=== PATIENT | female | born 1975 | race Caucasian/White ===

== ENCOUNTER → 2016-10-05 | Outpatient (CLI) | payer BC ==
[2016-10-05 09:50] LABS: MEAN CORPUSCULAR HEMOGLOBIN 29.3 pg (27.0-33.0); MEAN CORPUSCULAR HGB CONC 33.3 g/dl (32.0-36.5); MEAN CORPUSCULAR VOLUME 88.3 fl (80.0-96.0); RED CELL DISTRIBUTION WIDTH 13.1 % (11.5-14.5); WHITE BLOOD COUNT 8.8 K/mm3 (4.0-10.0)
[2016-10-05 09:56] LABS: CONTROL LINE HCG INT CTR LINE PRESENT
[2016-10-05 10:20] LABS: ALBUMIN 3.8 GM/DL (3.2-5.2); ALKALINE PHOSPHATASE 93 U/L (45-117); ALT/SGPT 33 U/L (12-78); ANION GAP 7 MEQ/L (8-16); AST/SGOT 22 U/L (15-37); BILIRUBIN,TOTAL 0.2 MG/DL (0.2-1.0); BLOOD UREA NITROGEN 16 MG/DL (7-18); CALCIUM LEVEL 8.9 MG/DL (8.5-10.1); CARBON DIOXIDE LEVEL 29 MEQ/L (21-32); CHLORIDE LEVEL 103 MEQ/L (98-107); CHOLESTEROL LEVEL 239 MG/DL (<200); GLOMERULAR FILTRATION RATE > 60.0 (>60); GLUCOSE, FASTING 100 MG/DL (70-105); POTASSIUM SERUM 4.7 MEQ/L (3.5-5.1); SODIUM LEVEL 139 MEQ/L (136-145); TOTAL PROTEIN 7.6 GM/DL (6.4-8.2); TRIGLYCERIDES LEVEL 92 MG/DL (<150)
== END ==
LOC: M WUC 08:02
PROVIDERS: ATTEND Physician Assistant
DX: I10 Essential (primary) hypertension (principal); E28.2 Polycystic ovarian syndrome; E03.9 Hypothyroidism, unspecified

== ENCOUNTER 2016-10-17 10:11 | Emergency (ER) | payer BC ==
[~2016-10-17] VITALS: Ht 170.2 cm; Wt 90.8 kg
[2016-10-17 11:18] LABS: BASO # 0.1 K/mm3 (0.0-0.2); BASO % 0.6 % (0.0-1.0); EOS # 0.2 K/mm3 (0.0-0.50); EOS % 2.1 % (0.0-3.0); LARGE UNSTAINED CELL # 0.2 K/mm3 (0.0-0.4); LARGE UNSTAINED CELL % 1.8 % (0.0-4.0); LYMPH # 2.6 K/mm3 (1.5-4.5); LYMPH % 27.9 % (24.0-44.0); MEAN CORPUSCULAR HEMOGLOBIN 28.7 pg (27.0-33.0); MEAN CORPUSCULAR HGB CONC 33.3 g/dl (32.0-36.5); MEAN CORPUSCULAR VOLUME 86.2 fl (80.0-96.0); MONO # 0.3 K/mm3 (0.0-0.8); MONO % 3.6 % (0.0-5.0); NEUTROPHILS # 6.1 K/mm3 (1.8-7.7); PLATELET COUNT, AUTOMATED 397 k/mm3 (150-450); RED CELL DISTRIBUTION WIDTH 12.5 % (11.5-14.5); WHITE BLOOD COUNT 9.5 K/mm3 (4.0-10.0)
[2016-10-17 11:40] LABS: ANION GAP 10 MEQ/L (8-16); BLOOD UREA NITROGEN 13 MG/DL (7-18); CALCIUM LEVEL 8.9 MG/DL (8.5-10.1); CARBON DIOXIDE LEVEL 26 MEQ/L (21-32); CHLORIDE LEVEL 104 MEQ/L (98-107); CREATININE FOR GFR 0.74 MG/DL (0.55-1.02); GLOMERULAR FILTRATION RATE > 60.0 (>60); GLUCOSE, FASTING 109 MG/DL (70-105); PHOSPHORUS LEVEL 2.3 MG/DL (2.5-4.9); POTASSIUM SERUM 3.8 MEQ/L (3.5-5.1); SODIUM LEVEL 140 MEQ/L (136-145)
--- NOTE | 2016-10-17 11:49 | REP ---
Chest two views HISTORY: Chest pain Comparison: 08/12/2004 The lungs are clear. The heart is normal in size. The pulmonary vasculature is normal in appearance. The bony structure is intact. IMPRESSION: No acute disease. Signed by Lg Angel MD 10/17/2016 11:41 A
[2016-10-17] MEDS ORDERED: ACETAMINOPHEN 325 MG TAB As Ordered ONE (12:48)
[2016-10-17] MEDS ORDERED: NEUTRA-PHOS 1.25 GM PACKET PO ONE (14:00)
--- NOTE | 2016-10-17 14:48 | EDDOCDS ---
Nurse's Notes [facility] Name: Lillie Collins Age: 40 yrs Sex: Female : 1975 Arrival Date: 10/17/2016 Time: 10:11 Bed 12 Private MD: Michael Jacboson R. Diagnosis: Palpitations Presentation: 10/17 10:16 Red Flag criteria, patient assessed and taken directly to a bed. [facility] 10:17 Presenting complaint: Patient states: "My heart has been racing since yesterday, like jc4 beating fast. It feels like someone keeps plugging my ears and my teeth really hurt, it's weird". Adult Sepsis Screening: The patient does not have new or worsening altered mentation. Patient's respiratory rate is less than 22. Systolic blood pressure is greater than 100. Patient has a qSOFA score of 0- Negative Sepsis Screen. Suicide/Homicide risk assessment- the patient denies having any suicidal and/or homicidal ideations and does not present with any other emotional, behavioral or mental health complaints. Status: Patient is not a social services director or dependent. Transition of care: patient was not received from another setting of care. 10:17 Acuity: HUMBERTO Level 3 jc4 10:17 Method Of Arrival: Walkin/Carried/Asstd jc4 Triage Assessment: 10:21 General: Appears in no apparent distress. Pain: Pain currently is 0 out of 10 on a pain jc4 scale. The patient is triaged at the bedside. See Assessment in Nurses Notes section of ED record. 14:44 HIV screening NA for this visit Offered previously. 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 levothyroxine 88 mcg oral cap 1 cap once daily (Last dose: 10/17/2016 05:30) 2. metformin 1,000 mg Oral tr24 2 tabs once daily (Last dose: 10/17/2016 05:30) 3. TriNessa (28) 0.18/0.215/0.25 mg-35 mcg (28) oral tab 1 tab once daily (Last dose: 10/17/2016 05:30) 4. omeprazole 20 mg Oral cpDR 1 cap once daily (Last dose: 10/17/2016 05:30) 5. amlodipine 5 mg Oral tab 1 tab once daily (Last dose: 10/17/2016 05:30) - PMHx: Hypothyroidism; PCOS; Hypertension; GERD; - PSHx: Left Fallopian Tube Removed; C-6, C-7 Fusion; - Social history: Smoking status: Patient states was never smoker of tobacco. No barriers to communication noted, The patient speaks fluent Lao. - Family history: Not pertinent. - : The pt / caregiver states he / she is not on anticoagulants. Home medication list is obtained from the patient, Home medication list is obtained from Medications reviewed by [facility] External Medication History and confirmed with patient. - Exposure Risk Screening:: None identified. Screenin:26 Screening information is obtained from the patient. Fall risk: No risks identified. jc4 Assistance ADL's: requires no assistance with activities of daily living. Abuse/DV Screen: The patient / caregiver reports he/she is: not in a situation that causes fear, pain or injury. Nutritional screening: No deficits noted. Advance Directives: Currently, there is no health care proxy. There is no active DNR order. There is no living will. There is no Power of Trial Attorney. home support is adequate. Assessment: 10:30 General: Appears in no apparent distress, Behavior is appropriate for age, cooperative. ja5 Pain: Denies pain. Neurological: Level of Consciousness is awake, alert, Oriented to person, place, time, Snack Steward are. Cardiovascular: Capillary refill < 3 seconds Heart tones S1 S2 present Rhythm is sinus rhythm No ectopy. Respiratory: Airway is patent Respiratory effort is even, unlabored, Breath sounds are clear bilaterally. Derm: Skin is pink, warm & dry. 11:30 General: Patient resting in stretcher, respirations even and unlabored, color is pink, ja5 SR on cardiac cath tech. Patient states that she has no needs at this time. . 12:29 General: Patient on stretcher, laying down with visitor at bedside. Patient denies pain ja5 or palpitations at this time. SR with no ectopy on cardiac cath tech, respirations are even and unlabored, color is pink. Bed in low position, call juarez in reach. . 13:39 General: Patient resting in stretcher, laying down, awake and alert, respirations are ja5 even and unlabored, color is pink. Patient has a headache and was given Tylenol for pain 6/10. Patient denies any palpitations at this time. Bed in low position, call juarez in reach.. 14:45 General: Appears in no apparent distress, Behavior is appropriate for age, cooperative. ja5 Pain: Location: forehead Pain currently is 6 out of 10 on a pain scale. Neurological: Level of Consciousness is awake, alert, Oriented to person, place, time. Cardiovascular: Capillary refill < 3 seconds. Respiratory: Airway is patent Respiratory effort is even, unlabored, Respiratory pattern is regular, symmetrical. Derm: Skin is pink, warm & dry. Vital Signs: 10:14 BP 137 / 91; Pulse 92; Resp 18; Temp 97.6(O); Pulse Ox 100% on R/A; Weight 90.72 kg; nb2 Height 5 ft. 7 in. (170.18 cm) (R); Pain 0/10; 11:14 Pulse 76 MON; Pulse Ox 98% ; ja5 11:15 BP 124 / 77 (auto/); ja5 11:28 BP 129 / 73 (auto/); ja5 11:28 Pulse 80 MON; Pulse Ox 98% ; ja5 11:43 BP 133 / 82 (auto/); ja5 11:43 Pulse 80 MON; Pulse Ox 98% ; ja5 11:57 Pulse 82 MON; Pulse Ox 97% ; ja5 11:58 BP 141 / 83 (auto/); ja5 12:12 Pulse 82 MON; Pulse Ox 98% ; ja5 12:13 BP 127 / 79 (auto/); ja5 12:26 BP 128 / 74 Supine; Pulse 74; ja5 12:26 BP 140 / 81 Sitting; Pulse 82; ja5 12:26 BP 142 / 86 Standing; Pulse 85; ja5 12:28 BP 128 / 74 (auto/); ja5 12:28 Pulse 80 MON; Pulse Ox 97% ; ja5 12:43 BP 129 / 74 (auto/); ja5 12:43 Pulse 78 MON; Pulse Ox 97% ; ja5 12:58 BP 145 / 84 (auto/); ja5 12:58 Pulse 78 MON; Pulse Ox 95% ; ja5 13:13 BP 130 / 79 (auto/); ja5 13:14 Pulse 80 MON; Pulse Ox 98% ; ja5 13:28 BP 135 / 84 (auto/); ja5 13:29 Pulse 78 MON; Pulse Ox 98% ; ja5 13:46 BP 129 / 78 (auto/); ja5 13:47 Pulse 78 MON; Pulse Ox 98% ; ja5 14:12 Pulse 82 MON; Pulse Ox 96% ; ja5 14:13 BP 116 / 72 (auto/); ja5 14:36 BP 133 / 80; Pulse 75; Resp 16; Temp 97.9(O); Pulse Ox 97% on R/A; Pain 6/10; ja5 10:14 Body Mass Index 31.32 (90.72 kg, 170.18 cm) 2 Vitals: 10:14 Log In Time: October 17, 2016 at 10:10. 2 ED Course: 10:13 Patient visited by Rina Randolph. nb2 10:13 Michael Jacobson is Private Physician. nb2 10:13 Patient moved to Waiting nb2 10:14 Patient visited by Rina Randolph. nb2 10:15 Patient moved to Pre RCE nb2 10:17 Marlen Sheets,RN is Primary Nurse. [facility] 10:[address] [facility] 10:19 Triage Initiated jc4 10:25 The patient / caregiver is instructed regarding the plan of care and ED course. jc4 10:25 medical technologist hematology on. Pulse ox on. NIBP on. jc4 10:28 EKG done per protocol. Performed by ED Staff. Shown to Jonny Keita MD. jc4 10:29 EKG done. (by ED staff). Reviewed by Jonny Keita MD. rn1 11:08 Miguel A Urbina DO is [facility]. gk1 11:08 Jonny Keita MD is Attending Physician. gk1 11:13 Missed attempts: 20 gauge X 1 in left antecubital area, Bleeding controlled, band aid jc4 applied, catheter tip intact. 11:15 Patient visited by Mari Rain RN. jc4 11:16 Inserted saline lock: 20 gauge in right forearm The patient tolerated the procedure jc4 well. 12:07 Chest, 2 View (pa\\E\\lat) Returned. EDMS 12:08 Patient visited by Jonny Keita MD. br1 12:17 Mari Rain, SEB is Primary Nurse. jc4 12:45 Patient visited by Marlen Sheets RN. ja5 12:45 Patient visited by Marlen Sheets RN. ja5 13:25 [facility] Payment Agreement was scanned into [employer] and attached to record. lg 13:39 Patient visited by Marlen Sheets RN. ja5 13:43 Michael Jacobson is Referral Physician. gk1 13:43 Colleen Atkins is Referral Physician. gk1 14:43 No procedures done that require assistance. ja5 Administered Medications: 12:50 Drug: Acetaminophen 650 mg [acetaminophen 325 mg tablet (2 tabs)] Route: PO; ja5 14:33 Drug: Potassium & Sodium Phosphates 1 packets [potassium, sodium phosphates 280 mg-160 ja5 mg-250 mg oral powder packet (1 powder in packet)] Route: PO; Order Results: Lab Order: Basic Metabolic Profile; SPEC'M 10/17/16 11:07 Test: GLUCOSE, FASTING; Value: 109; Range: 70-105; Abnormal: Above high normal; Units: MG/DL; Status: F Test: BLOOD UREA NITROGEN; Value: 13; Range: 7-18; Units: MG/DL; Status: F Test: CREATININE FOR GFR; Value: 0.74; Range: 0.55-1.02; Units: MG/DL; Status: F Test: GLOMERULAR FILTRATION RATE; Value: > 60.0; Range: >60; Status: F Test: SODIUM LEVEL; Value: 140; Range: 136-145; Units: MEQ/L; Status: F Test: POTASSIUM SERUM; Value: 3.8; Range: 3.5-5.1; Units: MEQ/L; Status: F Test: CHLORIDE LEVEL; Value: 104; Range: 98-107; Units: MEQ/L; Status: F Test: CARBON DIOXIDE LEVEL; Value: 26; Range: 21-32; Units: MEQ/L; Status: F Test: ANION GAP; Value: 10; Range: 8-16; Units: MEQ/L; Status: F Test: CALCIUM LEVEL; Value: 8.9; Range: 8.5-10.1; Units: MG/DL; Status: F Test Note: ; Units are mL/min/1.73 m2 Chronic Kidney Disease Staging per NKF: Stage I & II GFR >=60 Normal to Mildly Decreased Stage III GFR 30-59 Moderately Decreased Stage IV GFR 15-29 Severely Decreased Stage V GFR <15 Very Little GFR Left ESRD GFR <15 [facility] Lab Order: CBC with Diff; SPEC'M 10/17/16 11:07 Test: WHITE BLOOD COUNT; Value: 9.5; Range: 4.0-10.0; Units: K/mm3; Status: F Test: RED BLOOD COUNT; Value: 4.53; Range: 4.00-5.40; Units: M/mm3; Status: F Test: HEMOGLOBIN; Value: 13.0; Range: 12.0-16.0; Units: g/dl; Status: F Test: HEMATOCRIT; Value: 39.1; Range: 36.0-47.0; Units: %; Status: F Test: MEAN CORPUSCULAR VOLUME; Value: 86.2; Range: 80.0-96.0; Units: fl; Status: F Test: MEAN CORPUSCULAR HEMOGLOBIN; Value: 28.7; Range: 27.0-33.0; Units: pg; Status: F Test: MEAN CORPUSCULAR HGB CONC; Value: 33.3; Range: 32.0-36.5; Units: g/dl; Status: F Test: RED CELL DISTRIBUTION WIDTH; Value: 12.5; Range: 11.5-14.5; Units: %; Status: F Test: PLATELET COUNT, AUTOMATED; Value: 397; Range: 150-450; Units: k/mm3; Status: F Test: NEUTROPHILS %; Value: 64.0; Range: 36.0-66.0; Units: %; Status: F Test: LYMPH %; Value: 27.9; Range: 24.0-44.0; Units: %; Status: F Test: MONO %; Value: 3.6; Range: 0.0-5.0; Units: %; Status: F Test: EOS %; Value: 2.1; Range: 0.0-3.0; Units: %; Status: F Test: BASO %; Value: 0.6; Range: 0.0-1.0; Units: %; Status: F Test: LARGE UNSTAINED CELL %; Value: 1.8; Range: 0.0-4.0; Units: %; Status: F Test: NEUTROPHILS #; Value: 6.1; Range: 1.8-7.7; Units: K/mm3; Status: F Test: LYMPH #; Value: 2.6; Range: 1.5-4.5; Units: K/mm3; Status: F Test: MONO #; Value: 0.3; Range: 0.0-0.8; Units: K/mm3; Status: F Test: EOS #; Value: 0.2; Range: 0.0-0.50; Units: K/mm3; Status: F Test: BASO #; Value: 0.1; Range: 0.0-0.2; Units: K/mm3; Status: F Test: LARGE UNSTAINED CELL #; Value: 0.2; Range: 0.0-0.4; Units: K/mm3; Status: F Lab Order: Cardiac Injury Profile; [facility] 10/17/16 11:07 Test: CPK CREATINE PHOSPHOKINASE; Value: 62; Range: 26-192; Units: U/L; Status: F Test: CK-MB VALUE MASS; Value: 1.0; Range: 0.0-3.6; Units: NG/ML; Status: F Test: MB/CK RELATIVE INDEX; Value: 1.61; Range: < OR =4; Status: F Test Note: ; DIAGNOSIS CRITERIA MMB ng/ml Relative Index (RI) NON-AMI < or = 5 N/A PADRON ZONE > 5 < or = 4 AMI > 5 > 4 Lab Order: Troponin; [facility] 10/17/16 11:07 Test: TROPONIN I; Value: < 0.02; Range: < 0.10; Units: NG/ML; Status: F Test Note: ; Troponin I Reference Interval for [employer] LOCI: 99th Percentile= 0.00-0.045 ng/ml Risk Stratification: <= 0.10 ng/ml Decreased Risk for Adverse Clinical Events. 0.10-1.50 ng/ml Increased Risk for Adverse Clinical Events. Evaluation of additional criterion and/or repeat testing in 2-6 hours is suggested to rule out myocardial damage. >= 1.50 ng/ml Indicative of Myocardial Injury. Lab Order: TSH with Free T4; [facility] 10/17/16 11:07 Test: THYROID STIMULATING HORMONE; Value: 1.790; Range: 0.358-3.740; Units: uIU/ML; Status: F Test: FREE T4; Value: 1.20; Range: 0.76-1.46; Units: NG/DL; Status: F Lab Order: Magnesium Level; [facility] 10/17/16 11:07 Test: MAGNESIUM LEVEL; Value: 2.0; Range: 1.8-2.4; Units: MG/DL; Status: F Lab Order: Phosphorous Level; [facility] 10/17/16 11:07 Test: PHOSPHORUS LEVEL; Value: 2.3; Range: 2.5-4.9; Abnormal: Below low normal; Units: MG/DL; Status: F Lab Order: D-Dimer Quant; SPE[facility] 10/17/16 11:50 Test: D-DIMER QUANT; Value: < 270.0; Range: <500; Units: ng/ml; Status: F Radiology Order: Chest, 2 View (pa\\E\\lat) Test: Chest, 2 View (pa\\E\\lat) REASON FOR EXAMINATION: Chest Pain; Chest two views; ; HISTORY: Chest pain; ; Comparison: 08/12/2004; ; The lungs are clear. The heart is normal in size. The pulmonary vasculature is; normal in appearance. The bony structure is intact.; ; IMPRESSION: No acute disease.; ; ; Signed by; Lg Angel MD 10/17/2016 11:41 A; Outcome: 13:43 Discharge ordered by Provider. gk1 14:43 Discharge Assessment: Patient awake and alert. Oriented to person, place and time. ja5 patient administered narcotics - no. The following High Risk Discharge criteria are identified: None. Discharged to home ambulatory, with family. Condition: stable. Discharge instructions given to patient, Instructed on discharge instructions, follow up and referral plans. Demonstrated understanding of instructions, Pt was receptive of discharge instructions/ teaching. No special radiology studies were completed. Property :Personal belongings accompany Pt. 14:47 Patient left the ED. ja5 Signatures: Dispatcher [employer] EDAimee Byrson, SEB RN Lorena Izaguirre, Jonny Mckenna lg, MD MD br1 Mari Rain RN RN jc4 Newman, Robert rn1 Rina Randolph Gurpreet, DO DO gk1 Marlen Sheets,RN RN ja5 Corrections: (The following items were deleted from the chart) General: Appears in no apparent distress, mary grace jaEliza Pain: Denies pain. debi5 ja5 MTDD
--- NOTE | 2016-10-17 14:48 | EDDOCDS ---
Physician Documentation [facility] Name: Lillie Collins Age: 40 yrs Sex: Female : 1975 Arrival Date: 10/17/2016 Time: 10:11 Bed 12 Private MD: Michael Jacobson R. Disposition: 10/17/16 13:43 Discharged to Home/Self Care. Impression: Palpitations. - Condition is Stable. - Discharge Instructions: Palpitations, Palpitations, [id number]. - Medication Reconciliation, Local Pharmacy Hours form. - Follow up: Michael Jacobson; When: 1 week; Reason: Recheck today's complaints, Continuance of care. Follow up: Colleen Atkins; When: Call to arrange an appointment; Reason: Recheck today's complaints, To establish care. - Problem is new. - Symptoms have improved. Historical: - Allergies: no known allergies; - Home Meds: 1. levothyroxine 88 mcg oral cap 1 cap once daily (Last dose: 10/17/2016 05:30) 2. metformin 1,000 mg Oral tr24 2 tabs once daily (Last dose: 10/17/2016 05:30) 3. TriNessa (28) 0.18/0.215/0.25 mg-35 mcg (28) oral tab 1 tab once daily (Last dose: 10/17/2016 05:30) 4. omeprazole 20 mg Oral cpDR 1 cap once daily (Last dose: 10/17/2016 05:30) 5. amlodipine 5 mg Oral tab 1 tab once daily (Last dose: 10/17/2016 05:30) - PMHx: Hypothyroidism; PCOS; Hypertension; GERD; - PSHx: Left Fallopian Tube Removed; C-6, C-7 Fusion; - Social history: Smoking status: Patient states was never smoker of tobacco. No barriers to communication noted, The patient speaks fluent Malaysian. - Family history: Not pertinent. - : The pt / caregiver states he / she is not on anticoagulants. Home medication list is obtained from the patient, Home medication list is obtained from [facility] External Medication History and confirmed with patient. - Exposure Risk Screening:: None identified. 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 7 in. (170.18 cm) (R); Pain 0/10; 11:14 Pulse 76 MON; Pulse Ox 98% ; ja5 11:15 BP 124 / 77 (auto/); ja5 11:28 BP 129 / 73 (auto/); ja5 11:28 Pulse 80 MON; Pulse Ox 98% ; ja5 11:43 BP 133 / 82 (auto/); ja5 11:43 Pulse 80 MON; Pulse Ox 98% ; ja5 11:57 Pulse 82 MON; Pulse Ox 97% ; ja5 11:58 BP 141 / 83 (auto/); ja5 12:12 Pulse 82 MON; Pulse Ox 98% ; ja5 12:13 BP 127 / 79 (auto/); ja5 12:26 BP 128 / 74 Supine; Pulse 74; ja5 12:26 BP 140 / 81 Sitting; Pulse 82; ja5 12:26 BP 142 / 86 Standing; Pulse 85; ja5 12:28 BP 128 / 74 (auto/); ja5 12:28 Pulse 80 MON; Pulse Ox 97% ; ja5 12:43 BP 129 / 74 (auto/); ja5 12:43 Pulse 78 MON; Pulse Ox 97% ; ja5 12:58 BP 145 / 84 (auto/); ja5 12:58 Pulse 78 MON; Pulse Ox 95% ; ja5 13:13 BP 130 / 79 (auto/); ja5 13:14 Pulse 80 MON; Pulse Ox 98% ; ja5 13:28 BP 135 / 84 (auto/); ja5 13:29 Pulse 78 MON; Pulse Ox 98% ; ja5 13:46 BP 129 / 78 (auto/); ja5 13:47 Pulse 78 MON; Pulse Ox 98% ; ja5 14:12 Pulse 82 MON; Pulse Ox 96% ; ja5 14:13 BP 116 / 72 (auto/); ja5 14:36 BP 133 / 80; Pulse 75; Resp 16; Temp 97.9(O); Pulse Ox 97% on R/A; Pain 6/10; ja5 10:14 Body Mass Index 31.32 (90.72 kg, 170.18 cm) nb2 MDM: 10:18 ECG WITH READING ER PHYS+CARDIAG ordered. EDMS 10:18 ECG WITH READING ER PHYS+CARDIAG ordered. EDMS 10:28 Automotive Parts Coordinator/Pulse Ox/q 30 min VS ordered. br1 10:28 IV Saline Lock ordered. br1 10:28 Rhythm Strip to chart ordered. br1 10:28 Undress patient appropriately for examination ordered. br1 10:29 Basic Metabolic Profile Ordered. EDMS 10:29 CBC with Diff Ordered. EDMS 10:29 Cardiac Injury Profile Ordered. EDMS 10:29 Troponin Ordered. EDMS 10:29 TSH with Free T4 Ordered. EDMS 10:29 Magnesium Level Ordered. EDMS 10:29 Phosphorous Level Ordered. EDMS 10:29 Chest, 2 View (pa\E\lat) Ordered. EDMS 11:37 Orthostatic VS ordered. gk1 11:59 D-Dimer Quant Ordered. EDMS 12:46 Financial registration complete. lg 12:46 Acetaminophen Tablet 650 mg PO once ordered. br1 13:25 [facility] Payment Agreement was scanned into [employer] and attached to record. lg 13:29 Basic Metabolic Profile Reviewed. gk1 13:29 Phosphorous Level Reviewed. gk1 13:29 CBC with Diff Reviewed. gk1 13:29 Cardiac Injury Profile Reviewed. gk1 13:29 Troponin Reviewed. gk1 13:29 TSH with Free T4 Reviewed. gk1 13:29 Magnesium Level Reviewed. gk1 13:29 D-Dimer Quant Reviewed. gk1 13:29 Chest, 2 View (pa\E\lat) Reviewed. gk1 13:34 Potassium & Sodium Phosphates Packet 280 mg-160 mg-250 mg 1 packets PO once; mix packet br1 with 75ml water or juice, stir well and administer promptly ordered. 13:47 ED course: Seen with resident. Complains of palpitations, feels heart beating br1 irregularly, now improved. Labs, imaging unrevealing. EKG and cardiac telemetry show only normal sinus rhythm. Dr. Atkins consulted, will see patient as outpatient. Patient agrees, will call for appointment.. Administered Medications: 12:50 Drug: Acetaminophen 650 mg [acetaminophen 325 mg tablet (2 tabs)] Route: PO; ja5 14:33 Drug: Potassium & Sodium Phosphates 1 packets [potassium, sodium phosphates 280 mg-160 ja5 mg-250 mg oral powder packet (1 powder in packet)] Route: PO; Signatures: Dispatcher [employer] EDLorena Gibson, Reg Reg lg Jonny Keita MD MD br1 Mari Rain, RN RN jc4 Miguel A Urbina, DO gk1 Marlen Sheets,RN RN ja5 The chart was reviewed and I authenticate all verbal orders and agree with the evaluation and treatment provided.Attachments: 13:25 [facility] Payment Agreement lg MTDD
--- NOTE | 2016-10-19 09:39 | ECGEPIP ---
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 RBBB NONSPECIFIC T WAVE ABNORMALITY NO PRIORS Electronically Signed On 10-19-2016 9:39:08 EST by Omi Dozier
--- NOTE | 2016-10-19 15:47 | EDDOCDS ---
Physician Documentation [facility] Name: Lillie Collins Age: 40 yrs Sex: Female : 1975 Arrival Date: 10/17/2016 Time: 10:11 Bed 12 Private MD: Michael Jacobson R. Disposition: 10/17/16 13:43 Discharged to Home/Self Care. Impression: Palpitations. - Condition is Stable. - Discharge Instructions: Palpitations, Palpitations, [id number]. - Medication Reconciliation, Local Pharmacy Hours form. - Follow up: Michael Jacobson; When: 1 week; Reason: Recheck today's complaints, Continuance of care. Follow up: Colleen Atkins; When: Call to arrange an appointment; Reason: Recheck today's complaints, To establish care. - Problem is new. - Symptoms have improved. Historical: - Allergies: no known allergies; - Home Meds: 1. levothyroxine 88 mcg oral cap 1 cap once daily (Last dose: 10/17/2016 05:30) 2. metformin 1,000 mg Oral tr24 2 tabs once daily (Last dose: 10/17/2016 05:30) 3. TriNessa (28) 0.18/0.215/0.25 mg-35 mcg (28) oral tab 1 tab once daily (Last dose: 10/17/2016 05:30) 4. omeprazole 20 mg Oral cpDR 1 cap once daily (Last dose: 10/17/2016 05:30) 5. amlodipine 5 mg Oral tab 1 tab once daily (Last dose: 10/17/2016 05:30) - PMHx: Hypothyroidism; PCOS; Hypertension; GERD; - PSHx: Left Fallopian Tube Removed; C-6, C-7 Fusion; - Social history: Smoking status: Patient states was never smoker of tobacco. No barriers to communication noted, The patient speaks fluent Rwandan. - Family history: Not pertinent. - : The pt / caregiver states he / she is not on anticoagulants. Home medication list is obtained from the patient, Home medication list is obtained from [facility] Medication History and confirmed with patient. - Exposure Risk Screening:: None identified. 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 7 in. (170.18 cm) (R); Pain 0/10; 11:14 Pulse 76 MON; Pulse Ox 98% ; ja5 11:15 BP 124 / 77 (auto/); ja5 11:28 BP 129 / 73 (auto/); ja5 11:28 Pulse 80 MON; Pulse Ox 98% ; ja5 11:43 BP 133 / 82 (auto/); ja5 11:43 Pulse 80 MON; Pulse Ox 98% ; ja5 11:57 Pulse 82 MON; Pulse Ox 97% ; ja5 11:58 BP 141 / 83 (auto/); ja5 12:12 Pulse 82 MON; Pulse Ox 98% ; ja5 12:13 BP 127 / 79 (auto/); ja5 12:26 BP 128 / 74 Supine; Pulse 74; ja5 12:26 BP 140 / 81 Sitting; Pulse 82; ja5 12:26 BP 142 / 86 Standing; Pulse 85; ja5 12:28 BP 128 / 74 (auto/); ja5 12:28 Pulse 80 MON; Pulse Ox 97% ; ja5 12:43 BP 129 / 74 (auto/); ja5 12:43 Pulse 78 MON; Pulse Ox 97% ; ja5 12:58 BP 145 / 84 (auto/); ja5 12:58 Pulse 78 MON; Pulse Ox 95% ; ja5 13:13 BP 130 / 79 (auto/); ja5 13:14 Pulse 80 MON; Pulse Ox 98% ; ja5 13:28 BP 135 / 84 (auto/); ja5 13:29 Pulse 78 MON; Pulse Ox 98% ; ja5 13:46 BP 129 / 78 (auto/); ja5 13:47 Pulse 78 MON; Pulse Ox 98% ; ja5 14:12 Pulse 82 MON; Pulse Ox 96% ; ja5 14:13 BP 116 / 72 (auto/); ja5 14:36 BP 133 / 80; Pulse 75; Resp 16; Temp 97.9(O); Pulse Ox 97% on R/A; Pain 6/10; ja5 14:47 Pain 6/10; ja5 10:14 Body Mass Index 31.32 (90.72 kg, 170.18 cm) nb2 MDM: 10:18 ECG WITH READING ER PHYS+CARDIAG ordered. EDMS 10:18 ECG WITH READING ER PHYS+CARDIAG ordered. EDMS 10:28 Scow Captain/Pulse Ox/q 30 min VS ordered. br1 10:28 IV Saline Lock ordered. br1 10:28 Rhythm Strip to chart ordered. br1 10:28 Undress patient appropriately for examination ordered. br1 10:29 Basic Metabolic Profile Ordered. EDMS 10:29 CBC with Diff Ordered. EDMS 10:29 Cardiac Injury Profile Ordered. EDMS 10:29 Troponin Ordered. EDMS 10:29 TSH with Free T4 Ordered. EDMS 10:29 Magnesium Level Ordered. EDMS 10:29 Phosphorous Level Ordered. EDMS 10:29 Chest, 2 View (pa\E\lat) Ordered. EDMS 11:37 Orthostatic VS ordered. gk1 11:59 D-Dimer Quant Ordered. EDMS 12:46 Financial registration complete. lg 12:46 Acetaminophen Tablet 650 mg PO once ordered. br1 13:25 [facility] Payment Agreement was scanned into [employer] and attached to record. lg 13:29 Basic Metabolic Profile Reviewed. gk1 13:29 Phosphorous Level Reviewed. gk1 13:29 CBC with Diff Reviewed. gk1 13:29 Cardiac Injury Profile Reviewed. gk1 13:29 Troponin Reviewed. gk1 13:29 TSH with Free T4 Reviewed. gk1 13:29 Magnesium Level Reviewed. gk1 13:29 D-Dimer Quant Reviewed. gk1 13:29 Chest, 2 View (pa\E\lat) Reviewed. gk1 13:34 Potassium & Sodium Phosphates Packet 280 mg-160 mg-250 mg 1 packets PO once; mix packet br1 with 75ml water or juice, stir well and administer promptly ordered. 13:47 ED course: Seen with resident. Complains of palpitations, feels heart beating br1 irregularly, now improved. Labs, imaging unrevealing. EKG and cardiac telemetry show only normal sinus rhythm. Dr. Atkins consulted, will see patient as outpatient. Patient agrees, will call for appointment.. Administered Medications: 12:50 Drug: Acetaminophen 650 mg [acetaminophen 325 mg tablet (2 tabs)] Route: PO; ja5 14:47 Follow up: Pain 01/28 Adult ja5 14:33 Drug: Potassium & Sodium Phosphates 1 packets [potassium, sodium phosphates 280 mg-160 ja5 mg-250 mg oral powder packet (1 powder in packet)] Route: PO; Signatures: Dispatcher [employer] Lorena Ibarra, Reg Reg lg Jonny Keita MD MD br1 Mari Rain RN RN jc4 Miguel A Urbina, DO gk1 Marlen SheetsRN RN ja5 The chart was reviewed and I authenticate all verbal orders and agree with the evaluation and treatment provided.Attachments: 13:25 [facility] Payment Agreement lg Chart Complete MTDD
--- NOTE | 2016-10-19 15:47 | EDDOCDS ---
Nurse's Notes [facility] Name: Harjit Collins Age: 40 yrs Sex: Female : 1975 Arrival Date: 10/17/2016 Time: 10:11 Bed 12 Private MD: Michael Jacobson R. Diagnosis: Palpitations Presentation: 10/17 10:16 Red Flag criteria, patient assessed and taken directly to a bed. [facility] 10:17 Presenting complaint: Patient states: "My heart has been racing since yesterday, like jc4 beating fast. It feels like someone keeps plugging my ears and my teeth really hurt, it's weird". Adult Sepsis Screening: The patient does not have new or worsening altered mentation. Patient's respiratory rate is less than 22. Systolic blood pressure is greater than 100. Patient has a qSOFA score of 0- Negative Sepsis Screen. Suicide/Homicide risk assessment- the patient denies having any suicidal and/or homicidal ideations and does not present with any other emotional, behavioral or mental health complaints. Status: Patient is not a premium service representative or dependent. Transition of care: patient was not received from another setting of care. 10:17 Acuity: HUMBERTO Level 3 jc4 10:17 Method Of Arrival: Walkin/Carried/Asstd jc4 Triage Assessment: 10:21 General: Appears in no apparent distress. Pain: Pain currently is 0 out of 10 on a pain jc4 scale. The patient is triaged at the bedside. See Assessment in Nurses Notes section of ED record. 14:44 HIV screening NA for this visit Offered previously. 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 levothyroxine 88 mcg oral cap 1 cap once daily (Last dose: 10/17/2016 05:30) 2. metformin 1,000 mg Oral tr24 2 tabs once daily (Last dose: 10/17/2016 05:30) 3. TriNessa (28) 0.18/0.215/0.25 mg-35 mcg (28) oral tab 1 tab once daily (Last dose: 10/17/2016 05:30) 4. omeprazole 20 mg Oral cpDR 1 cap once daily (Last dose: 10/17/2016 05:30) 5. amlodipine 5 mg Oral tab 1 tab once daily (Last dose: 10/17/2016 05:30) - PMHx: Hypothyroidism; PCOS; Hypertension; GERD; - PSHx: Left Fallopian Tube Removed; C-6, C-7 Fusion; - Social history: Smoking status: Patient states was never smoker of tobacco. No barriers to communication noted, The patient speaks fluent Azeri. - Family history: Not pertinent. - : The pt / caregiver states he / she is not on anticoagulants. Home medication list is obtained from the patient, Home medication list is obtained from Medications reviewed by Image Searcher External Medication History and confirmed with patient. - Exposure Risk Screening:: None identified. Screenin:26 Screening information is obtained from the patient. Fall risk: No risks identified. jc4 Assistance ADL's: requires no assistance with activities of daily living. Abuse/DV Screen: The patient / caregiver reports he/she is: not in a situation that causes fear, pain or injury. Nutritional screening: No deficits noted. Advance Directives: Currently, there is no health care proxy. There is no active DNR order. There is no living will. 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 home support is adequate. Assessment: 10:30 General: Appears in no apparent distress, Behavior is appropriate for age, cooperative. ja5 Pain: Denies pain. Neurological: Level of Consciousness is awake, alert, Oriented to person, place, time, Nutrition Services Aide are. Cardiovascular: Capillary refill < 3 seconds Heart tones S1 S2 present Rhythm is sinus rhythm No ectopy. Respiratory: Airway is patent Respiratory effort is even, unlabored, Breath sounds are clear bilaterally. Derm: Skin is pink, warm & dry. 11:30 General: Patient resting in stretcher, respirations even and unlabored, color is pink, ja5 SR on cardiac cath tech. Patient states that she has no needs at this time. . 12:29 General: Patient on stretcher, laying down with visitor at bedside. Patient denies pain ja5 or palpitations at this time. SR with no ectopy on cardiac cath tech, respirations are even and unlabored, color is pink. Bed in low position, call juarez in reach. . 13:39 General: Patient resting in stretcher, laying down, awake and alert, respirations are ja5 even and unlabored, color is pink. Patient has a headache and was given Tylenol for pain 6/10. Patient denies any palpitations at this time. Bed in low position, call juarez in reach.. 14:45 General: Appears in no apparent distress, Behavior is appropriate for age, cooperative. ja5 Pain: Location: forehead Pain currently is 6 out of 10 on a pain scale. Neurological: Level of Consciousness is awake, alert, Oriented to person, place, time. Cardiovascular: Capillary refill < 3 seconds. Respiratory: Airway is patent Respiratory effort is even, unlabored, Respiratory pattern is regular, symmetrical. Derm: Skin is pink, warm & dry. Vital Signs: 10:14 BP 137 / 91; Pulse 92; Resp 18; Temp 97.6(O); Pulse Ox 100% on R/A; Weight 90.72 kg; nb2 Height 5 ft. 7 in. (170.18 cm) (R); Pain 0/10; 11:14 Pulse 76 MON; Pulse Ox 98% ; ja5 11:15 BP 124 / 77 (auto/); ja5 11:28 BP 129 / 73 (auto/); ja5 11:28 Pulse 80 MON; Pulse Ox 98% ; ja5 11:43 BP 133 / 82 (auto/); ja5 11:43 Pulse 80 MON; Pulse Ox 98% ; ja5 11:57 Pulse 82 MON; Pulse Ox 97% ; ja5 11:58 BP 141 / 83 (auto/); ja5 12:12 Pulse 82 MON; Pulse Ox 98% ; ja5 12:13 BP 127 / 79 (auto/); ja5 12:26 BP 128 / 74 Supine; Pulse 74; ja5 12:26 BP 140 / 81 Sitting; Pulse 82; ja5 12:26 BP 142 / 86 Standing; Pulse 85; ja5 12:28 BP 128 / 74 (auto/); ja5 12:28 Pulse 80 MON; Pulse Ox 97% ; ja5 12:43 BP 129 / 74 (auto/); ja5 12:43 Pulse 78 MON; Pulse Ox 97% ; ja5 12:58 BP 145 / 84 (auto/); ja5 12:58 Pulse 78 MON; Pulse Ox 95% ; ja5 13:13 BP 130 / 79 (auto/); ja5 13:14 Pulse 80 MON; Pulse Ox 98% ; ja5 13:28 BP 135 / 84 (auto/); ja5 13:29 Pulse 78 MON; Pulse Ox 98% ; ja5 13:46 BP 129 / 78 (auto/); ja5 13:47 Pulse 78 MON; Pulse Ox 98% ; ja5 14:12 Pulse 82 MON; Pulse Ox 96% ; ja5 14:13 BP 116 / 72 (auto/); ja5 14:36 BP 133 / 80; Pulse 75; Resp 16; Temp 97.9(O); Pulse Ox 97% on R/A; Pain 6/10; ja5 14:47 Pain 6/10; ja5 10:14 Body Mass Index 31.32 (90.72 kg, 170.18 cm) nb2 Vitals: 10:14 Log In Time: October 17, 2016 at 10:10. nb2 ED Course: 10:13 Patient visited by Rina Randolph. nb2 10:13 Michael Jacobson is Private Physician. nb2 10:13 Patient moved to Waiting nb2 10:14 Patient visited by Rina Randolph. nb2 10:15 Patient moved to Pre RCE nb2 10:17 Marlen Sheets,SEB is Primary Nurse. kp 10:17 Patient moved to [facility] 10:19 Triage Initiated jc4 10:25 The patient / caregiver is instructed regarding the plan of care and ED course. jc4 10:25 environmental monitoring technician on. Pulse ox on. NIBP on. jc4 10:28 EKG done per protocol. Performed by ED Staff. Shown to Dee Keita MD. jc4 10:29 EKG done. (by ED staff). Reviewed by Dee Keita MD. rn1 11:08 [facility] gk1 11:08 Dee Keita MD is Attending Physician. gk1 11:13 Missed attempts: 20 gauge X 1 in left antecubital area, Bleeding controlled, band aid jc4 applied, catheter tip intact. 11:15 Patient visited by Mari Rain, SEB. jc4 11:16 Inserted saline lock: 20 gauge in right forearm The patient tolerated the procedure jc4 well. 12:07 Chest, 2 View (pa\\E\\lat) Returned. EDMS 12:08 Patient visited by Dee Keita MD. br1 12:17 Mari Rain, SEB is Primary Nurse. jc4 12:45 Patient visited by Marlen Sheets RN. ja5 12:45 Patient visited by Marlen Sheets RN. ja5 13:25 [facility] Payment Agreement was scanned into [employer] and attached to record. lg 13:39 Patient visited by Marlen Sheets RN. ja5 13:43 Michael Jacobson is Referral Physician. gk1 13:43 Colleen Atkins is Referral Physician. gk1 14:43 No procedures done that require assistance. ja5 10/19 10:05 EKG-ADULT Returned. EDMS Administered Medications: 10/17 12:50 Drug: Acetaminophen 650 mg [acetaminophen 325 mg tablet (2 tabs)] Route: PO; ja5 14:47 Follow up: Pain 01/28 Adult [facility] 14:33 Drug: Potassium & Sodium Phosphates 1 packets [potassium, sodium phosphates 280 mg-160 ja5 mg-250 mg oral powder packet (1 powder in packet)] Route: PO; Order Results: Lab Order: Basic Metabolic Profile; SPEC'M 10/17/16 11:07 Test: GLUCOSE, FASTING; Value: 109; Range: 70-105; Abnormal: Above high normal; Units: MG/DL; Status: F Test: BLOOD UREA NITROGEN; Value: 13; Range: 7-18; Units: MG/DL; Status: F Test: CREATININE FOR GFR; Value: 0.74; Range: 0.55-1.02; Units: MG/DL; Status: F Test: GLOMERULAR FILTRATION RATE; Value: > 60.0; Range: >60; Status: F Test: SODIUM LEVEL; Value: 140; Range: 136-145; Units: MEQ/L; Status: F Test: POTASSIUM SERUM; Value: 3.8; Range: 3.5-5.1; Units: MEQ/L; Status: F Test: CHLORIDE LEVEL; Value: 104; Range: 98-107; Units: MEQ/L; Status: F Test: CARBON DIOXIDE LEVEL; Value: 26; Range: 21-32; Units: MEQ/L; Status: F Test: ANION GAP; Value: 10; Range: 8-16; Units: MEQ/L; Status: F Test: CALCIUM LEVEL; Value: 8.9; Range: 8.5-10.1; Units: MG/DL; Status: F Test Note: ; Units are mL/min/1.73 m2 Chronic Kidney Disease Staging per NKF: Stage I & II GFR >=60 Normal to Mildly Decreased Stage III GFR 30-59 Moderately Decreased Stage IV GFR 15-29 Severely Decreased Stage V GFR <15 Very Little GFR Left ESRD GFR <15 on 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 Lab Order: CBC with Diff; MARYJANE 10/17/16 11:07 Test: WHITE BLOOD COUNT; Value: 9.5; Range: 4.0-10.0; Units: K/mm3; Status: F Test: RED BLOOD COUNT; Value: 4.53; Range: 4.00-5.40; Units: M/mm3; Status: F Test: HEMOGLOBIN; Value: 13.0; Range: 12.0-16.0; Units: g/dl; Status: F Test: HEMATOCRIT; Value: 39.1; Range: 36.0-47.0; Units: %; Status: F Test: MEAN CORPUSCULAR VOLUME; Value: 86.2; Range: 80.0-96.0; Units: fl; Status: F Test: MEAN CORPUSCULAR HEMOGLOBIN; Value: 28.7; Range: 27.0-33.0; Units: pg; Status: F Test: MEAN CORPUSCULAR HGB CONC; Value: 33.3; Range: 32.0-36.5; Units: g/dl; Status: F Test: RED CELL DISTRIBUTION WIDTH; Value: 12.5; Range: 11.5-14.5; Units: %; Status: F Test: PLATELET COUNT, AUTOMATED; Value: 397; Range: 150-450; Units: k/mm3; Status: F Test: NEUTROPHILS %; Value: 64.0; Range: 36.0-66.0; Units: %; Status: F Test: LYMPH %; Value: 27.9; Range: 24.0-44.0; Units: %; Status: F Test: MONO %; Value: 3.6; Range: 0.0-5.0; Units: %; Status: F Test: EOS %; Value: 2.1; Range: 0.0-3.0; Units: %; Status: F Test: BASO %; Value: 0.6; Range: 0.0-1.0; Units: %; Status: F Test: LARGE UNSTAINED CELL %; Value: 1.8; Range: 0.0-4.0; Units: %; Status: F Test: NEUTROPHILS #; Value: 6.1; Range: 1.8-7.7; Units: K/mm3; Status: F Test: LYMPH #; Value: 2.6; Range: 1.5-4.5; Units: K/mm3; Status: F Test: MONO #; Value: 0.3; Range: 0.0-0.8; Units: K/mm3; Status: F Test: EOS #; Value: 0.2; Range: 0.0-0.50; Units: K/mm3; Status: F Test: BASO #; Value: 0.1; Range: 0.0-0.2; Units: K/mm3; Status: F Test: LARGE UNSTAINED CELL #; Value: 0.2; Range: 0.0-0.4; Units: K/mm3; Status: F Lab Order: Cardiac Injury Profile; [facility]' 10/17/16 11:07 Test: CPK CREATINE PHOSPHOKINASE; Value: 62; Range: 26-192; Units: U/L; Status: F Test: CK-MB VALUE MASS; Value: 1.0; Range: 0.0-3.6; Units: NG/ML; Status: F Test: MB/CK RELATIVE INDEX; Value: 1.61; Range: < OR =4; Status: F Test Note: ; DIAGNOSIS CRITERIA MMB ng/ml Relative Index (RI) NON-AMI < or = 5 N/A PADRON ZONE > 5 < or = 4 AMI > 5 > 4 Lab Order: Troponin; SPEC' 10/17/16 11:07 Test: TROPONIN I; Value: < 0.02; Range: < 0.10; Units: NG/ML; Status: F Test Note: ; Troponin I Reference Interval for What the Trend LOCI: 99th Percentile= 0.00-0.045 ng/ml Risk Stratification: <= 0.10 ng/ml Decreased Risk for Adverse Clinical Events. 0.10-1.50 ng/ml Increased Risk for Adverse Clinical Events. Evaluation of additional criterion and/or repeat testing in 2-6 hours is suggested to rule out myocardial damage. >= 1.50 ng/ml Indicative of Myocardial Injury. Lab Order: TSH with Free T4; SPEC'M 10/17/16 11:07 Test: THYROID STIMULATING HORMONE; Value: 1.790; Range: 0.358-3.740; Units: uIU/ML; Status: F Test: FREE T4; Value: 1.20; Range: 0.76-1.46; Units: NG/DL; Status: F Lab Order: Magnesium Level; SPEC'M 10/17/16 11:07 Test: MAGNESIUM LEVEL; Value: 2.0; Range: 1.8-2.4; Units: MG/DL; Status: F Lab Order: Phosphorous Level; SPEC'10/17/16 11:07 Test: PHOSPHORUS LEVEL; Value: 2.3; Range: 2.5-4.9; Abnormal: Below low normal; Units: MG/DL; Status: F Lab Order: D-Dimer Quant; SPEC'10/17/16 11:50 Test: D-DIMER QUANT; Value: < 270.0; Range: <500; Units: ng/ml; Status: F Radiology Order: EKG-ADULT Test: EKG-ADULT REASON FOR EXAMINATION: palpitations; Stationary ECG Study; [facility] - ED; ; Test Date: 2016-10-17; Pat Name: HARJIT COLLINS Department:; Room: -; Gender: F 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 RBBB; NONSPECIFIC T WAVE ABNORMALITY; NO PRIORS; Electronically Signed On 10-19-2016 9:39:08 EST by Omi Dozier; Radiology Order: Chest, 2 View (pa\\E\\lat) Test: Chest, 2 View (pa\\E\\lat) REASON FOR EXAMINATION: Chest Pain; Chest two views; ; HISTORY: Chest pain; ; Comparison: 08/12/2004; ; The lungs are clear. The heart is normal in size. The pulmonary vasculature is; normal in appearance. The bony structure is intact.; ; IMPRESSION: No acute disease.; ; ; Signed by; Lg Angel MD 10/17/2016 11:41 A; Outcome: 13:43 Discharge ordered by Provider. 1 14:43 Discharge Assessment: Patient awake and alert. Oriented to person, place and time. ja5 patient administered narcotics - no. The following High Risk Discharge criteria are identified: None. Discharged to home ambulatory, with family. Condition: stable. Discharge instructions given to patient, Instructed on discharge instructions, follow up and referral plans. Demonstrated understanding of instructions, Pt was receptive of discharge instructions/ teaching. No special radiology studies were completed. Property :Personal belongings accompany Pt. 14:47 Patient left the ED. ja5 Signatures: Dispatcher [employer] EDMS Aimee Devi, RN RN Lorena Izaguirre, Dee Mckenna lg, MD MD br1 Mari Rain, RN RN [email or web address] Nigel Porter rn1 Rina Randolph2 Miguel A Urbina, DO DO 1 Marlen Sheets,RN RN ja5 Corrections: (The following items were deleted from the chart) 12:24 12:22 General: Appears in no apparent distress, mary grace jaEliza 12:24 12:22 Pain: Denies pain. mary grace jaEliza Chart Complete MTDD
--- NOTE | 2016-10-19 15:47 | EDDOCDS ---
Physician Documentation [facility] Name: Lillie Collins Age: 40 yrs Sex: Female : 1975 Arrival Date: 10/17/2016 Time: 10:11 Bed 12 Private MD: Michael Jacobson R. Disposition: 10/17/16 13:43 Discharged to Home/Self Care. Impression: Palpitations. - Condition is Stable. - Discharge Instructions: Palpitations, Palpitations, Syjz-[id number]. - Medication Reconciliation, Local Pharmacy Hours form. - Follow up: Michael Jacobson; When: 1 week; Reason: Recheck today's complaints, Continuance of care. Follow up: Colleen Atkins; When: Call to arrange an appointment; Reason: Recheck today's complaints, To establish care. - Problem is new. - Symptoms have improved. Historical: - Allergies: no known allergies; - Home Meds: 1. levothyroxine 88 mcg oral cap 1 cap once daily (Last dose: 10/17/2016 05:30) 2. metformin 1,000 mg Oral tr24 2 tabs once daily (Last dose: 10/17/2016 05:30) 3. TriNessa (28) 0.18/0.215/0.25 mg-35 mcg (28) oral tab 1 tab once daily (Last dose: 10/17/2016 05:30) 4. omeprazole 20 mg Oral cpDR 1 cap once daily (Last dose: 10/17/2016 05:30) 5. amlodipine 5 mg Oral tab 1 tab once daily (Last dose: 10/17/2016 05:30) - PMHx: Hypothyroidism; PCOS; Hypertension; GERD; - PSHx: Left Fallopian Tube Removed; C-6, C-7 Fusion; - Social history: Smoking status: Patient states was never smoker of tobacco. No barriers to communication noted, The patient speaks fluent Bel[place]ian. - Family history: Not pertinent. - : The pt / caregiver states he / she is not on anticoagulants. Home medication list is obtained from the patient, Home medication list is obtained from Medications [facility] by [facility] External Medication History and confirmed with patient. - Exposure Risk Screening:: None identified. 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 7 in. (170.18 cm) (R); Pain 0/10; 11:14 Pulse 76 MON; Pulse Ox 98% ; ja5 11:15 BP 124 / 77 (auto/); ja5 11:28 BP 129 / 73 (auto/); ja5 11:28 Pulse 80 MON; Pulse Ox 98% ; ja5 11:43 BP 133 / 82 (auto/); ja5 11:43 Pulse 80 MON; Pulse Ox 98% ; ja5 11:57 Pulse 82 MON; Pulse Ox 97% ; ja5 11:58 BP 141 / 83 (auto/); ja5 12:12 Pulse 82 MON; Pulse Ox 98% ; ja5 12:13 BP 127 / 79 (auto/); ja5 12:26 BP 128 / 74 Supine; Pulse 74; ja5 12:26 BP 140 / 81 Sitting; Pulse 82; ja5 12:26 BP 142 / 86 Standing; Pulse 85; ja5 12:28 BP 128 / 74 (auto/); ja5 12:28 Pulse 80 MON; Pulse Ox 97% ; ja5 12:43 BP 129 / 74 (auto/); ja5 12:43 Pulse 78 MON; Pulse Ox 97% ; ja5 12:58 BP 145 / 84 (auto/); ja5 12:58 Pulse 78 MON; Pulse Ox 95% ; ja5 13:13 BP 130 / 79 (auto/); ja5 13:14 Pulse 80 MON; Pulse Ox 98% ; ja5 13:28 BP 135 / 84 (auto/); ja5 13:29 Pulse 78 MON; Pulse Ox 98% ; ja5 13:46 BP 129 / 78 (auto/); ja5 13:47 Pulse 78 MON; Pulse Ox 98% ; ja5 14:12 Pulse 82 MON; Pulse Ox 96% ; ja5 14:13 BP 116 / 72 (auto/); ja5 14:36 BP 133 / 80; Pulse 75; Resp 16; Temp 97.9(O); Pulse Ox 97% on R/A; Pain 6/10; ja5 14:47 Pain 6/10; ja5 10:14 Body Mass Index 31.32 (90.72 kg, 170.18 cm) nb2 MDM: 10:18 ECG WITH READING ER PHYS+CARDIAG ordered. EDMS 10:18 ECG WITH READING ER PHYS+CARDIAG ordered. EDMS 10:28 Sound Person/Pulse Ox/q 30 min VS ordered. br1 10:28 IV Saline Lock ordered. br1 10:28 Rhythm Strip to chart ordered. br1 10:28 Undress patient appropriately for examination ordered. br1 10:29 Basic Metabolic Profile Ordered. EDMS 10:29 CBC with Diff Ordered. EDMS 10:29 Cardiac Injury Profile Ordered. EDMS 10:29 Troponin Ordered. EDMS 10:29 TSH with Free T4 Ordered. EDMS 10:29 Magnesium Level Ordered. EDMS 10:29 Phosphorous Level Ordered. EDMS 10:29 Chest, 2 View (pa\E\lat) Ordered. EDMS 11:37 Orthostatic VS ordered. gk1 11:59 D-Dimer Quant Ordered. EDMS 12:46 Financial registration complete. lg 12:46 Acetaminophen Tablet 650 mg PO once ordered. br1 13:25 [facility] Payment Agreement was scanned into [employer] and attached to record. lg 13:29 Basic Metabolic Profile Reviewed. gk1 13:29 Phosphorous Level Reviewed. gk1 13:29 CBC with Diff Reviewed. gk1 13:29 Cardiac Injury Profile Reviewed. gk1 13:29 Troponin Reviewed. gk1 13:29 TSH with Free T4 Reviewed. gk1 13:29 Magnesium Level Reviewed. gk1 13:29 D-Dimer Quant Reviewed. gk1 13:29 Chest, 2 View (pa\E\lat) Reviewed. gk1 13:34 Potassium & Sodium Phosphates Packet 280 mg-160 mg-250 mg 1 packets PO once; mix packet br1 with 75ml water or juice, stir well and administer promptly ordered. 13:47 ED course: Seen with resident. Complains of palpitations, feels heart beating br1 irregularly, now improved. Labs, imaging unrevealing. EKG and cardiac telemetry show only normal sinus rhythm. Dr. Atkins consulted, will see patient as outpatient. Patient agrees, will call for appointment.. Administered Medications: 12:50 Drug: Acetaminophen 650 mg [acetaminophen 325 mg tablet (2 tabs)] Route: PO; ja5 14:47 Follow up: Pain 01/28 Adult ja5 14:33 Drug: Potassium & Sodium Phosphates 1 packets [potassium, sodium phosphates 280 mg-160 ja5 mg-250 mg oral powder packet (1 powder in packet)] Route: PO; Signatures: Dispatcher [employer] Lorena Ibarra, Reg Reg lg Jonny Keita MD MD br1 Mari Rain RN RN jc4 Miguel A Urbina, DO gk1 Marlen SheetsRN RN ja5 The chart was reviewed and I authenticate all verbal orders and agree with the evaluation and treatment provided.Attachments: 13:25 [facility] Payment Agreement lg Chart Complete MTDD
== END 2016-10-17 14:47 | disposition home or self-care (01) ==
LOC: M ED 10:11
DX: R00.2 Palpitations (principal); E03.9 Hypothyroidism, unspecified; E28.2 Polycystic ovarian syndrome; I10 Essential (primary) hypertension; K21.9 Gastro-esophageal reflux disease without esophagitis; Z79.899 Other long term (current) drug therapy

== ENCOUNTER → 2017-02-14 | Outpatient (REF) | payer BC | LOC: M LAB REF 13:08 | PROVIDERS: ATTEND Obstetrics & Gynecology | DX: Z12.4 Encounter for screening for malignant neoplasm of cervix (principal) ==

== ENCOUNTER 2017-03-29 07:18 | Day surgery (SDC) | payer BC ==
[~2017-03-29] VITALS: Ht 170.2 cm; Wt 88.5 kg
[~2017-03-29 07:18] MED LIST: HYDR25TAB PO; LEVO88TA3 PO; METF10004 PO; MULT1TAB10 PO; OMEP20CA3 PO; VENL75CA2 PO; ZONI50CA3 PO
[2017-03-29] MEDS ORDERED: LR 1,000 ML IV ONE (07:30)
[2017-03-29 07:51] LABS: MEAN CORPUSCULAR HEMOGLOBIN 27.7 pg (27.0-33.0); MEAN CORPUSCULAR HGB CONC 33.6 g/dl (32.0-36.5); MEAN CORPUSCULAR VOLUME 82.5 fl (80.0-96.0)
[2017-03-29 08:09] LABS: CONTROL LINE HCG INT CTR LINE PRESENT
[2017-03-29] MEDS ORDERED: ONDANSETRON 4MG/2ML VIAL (J2405) As Ordered ONE (08:52)
[2017-03-29] MEDS ORDERED: KETOROLAC 30 MG/ML VIAL (J1885) IV SCH (09:00)
[2017-03-29] MEDS ORDERED: PROPOFOL 200 MG/20 ML VIAL As Ordered ONE (09:07)
[2017-03-29] MEDS ORDERED: MIDAZOLAM INJ 2 MG/2 ML VIAL (J2250) As Ordered ONE (09:07)
[2017-03-29] MEDS ORDERED: fentaNYL 100 MCG/2 ML INJECTION (J3010) As Ordered ONE (09:07)
[2017-03-29] MEDS ORDERED: dexameTHASONE 4 MG/ML 1ML VIAL (J1100) As Ordered ONE (09:07)
[2017-03-29] MEDS ORDERED: LIDOCAINE 2% INJ 100 MG/5 ML SDV (FOR ANES.) As Ordered ONE (09:07)
[2017-03-29] MEDS ORDERED: KETOROLAC 60 MG/2 ML VIAL (J1885) As Ordered ONE (09:09)
--- NOTE | 2017-03-29 09:34 | RO ---
DATE OF PROCEDURE: 03/29/2017 PREPROCEDURE DIAGNOSIS: Abnormal uterine bleeding. POSTPROCEDURE DIAGNOSIS: Abnormal uterine bleeding. PROCEDURE PERFORMED: Hysteroscopy, dilation and curettage with NovaSure uterine ablation. SURGEON: Tosha Wilson MD TEST SPECIALIST: None. ANESTHESIA: General anesthesia via laryngeal mask airway. ESTIMATED BLOOD LOSS: 5 mL. INTRAVENOUS FLUIDS: 300 mL of lactated Ringer solution. URINE OUTPUT: 100 mL. SPECIMENS: Endometrial curettings. OPERATIVE FINDINGS: Patient with thickened endometrium. Bilateral ostia were visualized. Uterine cavity length was 5.5cm. Uterine length was 4.2cm. Ablation lasted for 1 minute and 20 seconds. DESCRIPTION OF PROCEDURE: After informed consent was obtained and written consent was reviewed, the patient was brought to the operating room where general anesthesia via laryngeal mask airway was performed. The patient was then prepped and draped in a normal sterile fashion. Time-out in the operating room was implemented identifying the patient, procedure to be performed, as well as drug allergies. Ivanhoe speculum was then placed revealing the cervix. The anterior lip of the cervix was grasped with a single toothed tenaculum. Uterine length was then obtained. The uterus was then sequentially dilated with use of Hanks dilators. The hysteroscope was then advanced through the cervical os. The endometrial cavity was surveyed with the above noted findings. The hysteroscope was then removed. Sharp curette was then advanced through the cervical os to the level of the fundus. The uterus was curetted in a 360 degree fashion with moderate amounts of tissue obtained. Next, NovaSure device was then advanced in the cervical os. The uterine width was then obtained. The width, as well as the length was entered into the NovaSure device. Cavity assessment was performed, followed by endometrial ablation that totaled 1 minute and 20 seconds. NovaSure device was then removed from the uterus, was inspected with mesh intact. Hysteroscope was then advanced through the cervical os and endometrial cavity was resurveyed showing desiccation of the endometrium. The hysteroscope was then removed. Single toothed tenaculum was removed. Tenaculum sites were noted to be hemostatic. Speculum was removed. In and out catheter was then performed, productive of 100 mL of clear urine. The patient was then taken out of lithotomy position, was awakened from general anesthesia and taken to recovery in stable condition. The counts were correct. MTDD
[2017-03-29] MEDS ORDERED: HYDROmorphone HCL 1 MG/ML SYRINGE (J1170) IV PRN (10:00)
[2017-03-29] MEDS ORDERED: PERCOCET 5MG/325MG TAB PO PRN ×2 (10:00)
[2017-03-29] MEDS ORDERED: fentaNYL 100 MCG/2 ML INJECTION (J3010) IV PRN (10:00)
[2017-03-29] MEDS ORDERED: ONDANSETRON 4MG/2ML VIAL (J2405) IV PRN (10:00)
[2017-03-29] MEDS ORDERED: LR 1,000 ML IV SCH (10:00)
[2017-03-29 10:45] VITALS: BP 133/89
== END 2017-03-29 11:05 | disposition home or self-care (01) ==
LOC: M SDC 07:18
PROVIDERS: ATTEND Obstetrics & Gynecology
DX: N93.8 Other specified abnormal uterine and vaginal bleeding (principal); I10 Essential (primary) hypertension; E03.9 Hypothyroidism, unspecified; E28.2 Polycystic ovarian syndrome; M54.2 Cervicalgia; Z79.899 Other long term (current) drug therapy
CPT/HCPCS: 36415; 58563; 84703; 85027; 86850; 86900; 86901; 88305; A4649; J1100; J1885; J2250; J2405; J3010

== ENCOUNTER → 2017-04-27 | Outpatient (REF) | payer BC | LOC: M SFHCLERA 16:29 | PROVIDERS: ATTEND Physician Assistant | DX: E03.9 Hypothyroidism, unspecified (principal) ==

== ENCOUNTER → 2017-07-17 | Outpatient (CLI) | payer BC ==
[2017-07-17 09:46] LABS: BASO # 0.1 10^3/uL (0.0-0.2); BASO % 0.6 % (0.0-1.0); EOS # 0.2 10^3/uL (0.0-0.50); EOS % 2.2 % (0.0-3.0); IMMATURE GRANULOCYTE % 0.6 % (0-0); LYMPH % 29.2 % (24.0-44.0); MEAN CORPUSCULAR HEMOGLOBIN 26.9 pg (27.0-33.0); MEAN CORPUSCULAR HGB CONC 32.5 g/dl (32.0-36.5); MEAN CORPUSCULAR VOLUME 82.8 fl (80.0-96.0); MONO # 0.6 10^3/uL (0.0-0.8); MONO % 6.3 % (0.0-5.0); NEUTROPHILS # 6.2 10^3/uL (1.8-7.7); NEUTROPHILS % 61.1 % (36.0-66.0); PLATELET COUNT, AUTOMATED 459 10^3/uL (150-450); RED CELL DISTRIBUTION WIDTH 14.7 % (11.5-14.5); WHITE BLOOD COUNT 10.2 10^3/uL (4.0-10.0)
[2017-07-17 10:21] LABS: ERYTHROCYTE SEDIMENTATION RATE 35 mm/hr (0-20)
== END ==
LOC: M WUC 08:18
PROVIDERS: ATTEND Physician Assistant
DX: D47.3 Essential (hemorrhagic) thrombocythemia (principal)

== ENCOUNTER → 2017-08-07 | Outpatient (CLI) | payer BC ==
[2017-08-07 09:14] LABS: BASO # 0.1 10^3/uL (0.0-0.2); BASO % 0.8 % (0.0-1.0); EOS # 0.2 10^3/uL (0.0-0.50); EOS % 2.7 % (0.0-3.0); IMMATURE GRANULOCYTE % 0.4 % (0-0); LYMPH # 2.5 10^3/uL (1.5-4.5); LYMPH % 29.7 % (24.0-44.0); MEAN CORPUSCULAR HEMOGLOBIN 26.7 pg (27.0-33.0); MEAN CORPUSCULAR HGB CONC 32.6 g/dl (32.0-36.5); MEAN CORPUSCULAR VOLUME 81.8 fl (80.0-96.0); MONO # 0.6 10^3/uL (0.0-0.8); MONO % 6.6 % (0.0-5.0); NEUTROPHILS # 5.1 10^3/uL (1.8-7.7); NEUTROPHILS % 59.8 % (36.0-66.0); PLATELET COUNT, AUTOMATED 468 10^3/uL (150-450); RED CELL DISTRIBUTION WIDTH 14.1 % (11.5-14.5); WHITE BLOOD COUNT 8.5 10^3/uL (4.0-10.0)
[2017-08-07 09:20] LABS: REASON FOR REVIEW COMPREHENSIVE REVIEW
[2017-08-07 09:52] LABS: FREE T4 1.19 NG/DL (0.76-1.46)
[2017-08-07 09:54] LABS: ERYTHROCYTE SEDIMENTATION RATE 28 mm/hr (0-20)
[2017-08-09 00:06] LABS: Lyme Disease IgG/IgM Antibodie <0.91 ISR (0.00-0.90); Lyme Disease IgM Ab Quantitati <0.80 index (0.00-0.79)
== END ==
LOC: M WUC 08:08
PROVIDERS: ATTEND Physician Assistant
DX: M25.50 Pain in unspecified joint (principal); D47.3 Essential (hemorrhagic) thrombocythemia; E03.9 Hypothyroidism, unspecified

== ENCOUNTER → 2018-03-06 | Outpatient (REF) | payer BC ==
[2018-03-06 14:38] LABS: CHOLESTEROL LEVEL 262 MG/DL (<200); CHOLESTEROL RISK RATIO 5.038 (<5); HDL CHOLESTEROL 52 MG/DL (>40); LDL CHOLESTEROL 157.6 MG/DL (<100); NON-HDL-C 210 MG/DL; THYROID STIMULATING HORMONE 0.653 uIU/ML (0.358-3.740); TRIGLYCERIDES LEVEL 262 MG/DL (<150)
== END ==
LOC: M LAB REF 13:56
DX: E03.9 Hypothyroidism, unspecified (principal)

== ENCOUNTER → 2018-03-06 | Outpatient (REF) | payer BC ==
[2018-03-06 14:33] LABS: FERRITIN 18 NG/ML (8-252); IRON (FE) 57 UG/DL (50-170); PERCENT SATURATION 13.5 % (13.2-45.0); TOTAL IRON BINDING CAPACITY 423 UG/DL (250-450)
== END ==
LOC: M LAB REF 13:49
DX: Z00.00 Encounter for general adult medical examination without abnormal findings (principal)
CPT/HCPCS: 83550

== ENCOUNTER → 2018-06-11 | Outpatient (CLI) | payer BC ==
[2018-06-11 09:02] LABS: HEMATOCRIT 39.2 % (36.0-47.0); HEMOGLOBIN 12.6 g/dl (12.0-15.5); MEAN CORPUSCULAR HEMOGLOBIN 28.8 pg (27.0-33.0); MEAN CORPUSCULAR HGB CONC 32.1 g/dl (32.0-36.5); MEAN CORPUSCULAR VOLUME 89.7 fl (80.0-96.0); PLATELET COUNT, AUTOMATED 389 10^3/uL (150-450); RED BLOOD COUNT 4.37 10^6/uL (4.00-5.40); RED CELL DISTRIBUTION WIDTH 12.8 % (11.5-14.5); WHITE BLOOD COUNT 8.8 10^3/uL (4.0-10.0)
[2018-06-11 09:42] LABS: ALBUMIN 3.7 GM/DL (3.2-5.2); ALBUMIN/GLOBULIN RATIO 1.03 (1.00-1.93); ALKALINE PHOSPHATASE 94 U/L (45-117); ALT/SGPT 39 U/L (12-78); ANION GAP 8 MEQ/L (8-16); AST/SGOT 24 U/L (7-37); BILIRUBIN,TOTAL 0.3 MG/DL (0.2-1.0); BLOOD UREA NITROGEN 18 MG/DL (7-18); CALCIUM LEVEL 9.2 MG/DL (8.5-10.1); CARBON DIOXIDE LEVEL 30 MEQ/L (21-32); CHLORIDE LEVEL 102 MEQ/L (98-107); CHOLESTEROL LEVEL 243 MG/DL (<200); CHOLESTEROL RISK RATIO 5.282 (<5); CREATININE FOR GFR 0.89 MG/DL (0.55-1.30); GLOMERULAR FILTRATION RATE > 60.0 (>58); GLUCOSE, FASTING 96 MG/DL (70-100); HDL CHOLESTEROL 46 MG/DL (>40); LDL CHOLESTEROL 155 MG/DL (<100); NON-HDL-C 197 MG/DL; POTASSIUM SERUM 4.9 MEQ/L (3.5-5.1); SODIUM LEVEL 140 MEQ/L (136-145); TOTAL PROTEIN 7.3 GM/DL (6.4-8.2); TRIGLYCERIDES LEVEL 212 MG/DL (<150)
== END ==
LOC: M WUC 08:05
DX: E78.2 Mixed hyperlipidemia (principal); E03.9 Hypothyroidism, unspecified
CPT/HCPCS: 84443

== ENCOUNTER 2018-08-13 08:11 | Emergency (ER) | payer OTHER, BC ==
[~2018-08-13] VITALS: Ht 170.2 cm; Wt 100.0 kg
[2018-08-13 08:12] VITALS: BP 156/92
[2018-08-13] MEDS ORDERED: METO1TAB33 (08:17)
[2018-08-13] MEDS ORDERED: ACETAMINOPHEN TAB 650MG DOSE (2X325MG) PO ONE (08:30)
[2018-08-13] MEDS ORDERED: IBUP-1022 PO (08:50)
--- NOTE | 2018-08-13 08:51 | REP ---
Clinical: Trauma with left ankle pain. Technique: AP, lateral, bilateral oblique views of the left ankle. Findings: Mild/moderate swelling is appreciated. No obvious acute fracture or dislocation identified. Ankle mortise appears intact. Impression: Swelling. No acute fracture or dislocation. Electronically Signed by Mainor Ballard MD 08/13/2018 08:42 A
== END 2018-08-13 08:59 | disposition home or self-care (01) ==
LOC: M ED 08:11
DX: S63.502A Unspecified sprain of left wrist, initial encounter (principal); W18.40XA Slipping, tripping and stumbling without falling, unspecified, initial encounter; Y92.89 Other specified places as the place of occurrence of the external cause; I10 Essential (primary) hypertension

== ENCOUNTER → 2018-10-01 | Outpatient (REF) | payer BC ==
[~2018-10-01] MED LIST changes: +IBUP-1022 PO; +METO1TAB33
== END ==
LOC: M SFHCPLAZ 08:33
PROVIDERS: ATTEND Internal Medicine
DX: E03.9 Hypothyroidism, unspecified (principal)

== ENCOUNTER → 2018-10-30 | Outpatient (REF) | payer BC ==
[2018-10-30 10:25] LABS: ALBUMIN 3.8 GM/DL (3.2-5.2); ALT/SGPT 23 U/L (12-78); BILIRUBIN,TOTAL 0.4 MG/DL (0.2-1.0); BLOOD UREA NITROGEN 20 MG/DL (7-18); CALCIUM LEVEL 9.3 MG/DL (8.5-10.1); CARBON DIOXIDE LEVEL 28 MEQ/L (21-32); CHLORIDE LEVEL 102 MEQ/L (98-107); CREATININE FOR GFR 0.76 MG/DL (0.55-1.30); GLOMERULAR FILTRATION RATE > 60.0 (>58); GLUCOSE, FASTING 95 MG/DL (70-100); POTASSIUM SERUM 4.3 MEQ/L (3.5-5.1); SODIUM LEVEL 137 MEQ/L (136-145); THYROID STIMULATING HORMONE 0.956 uIU/ML (0.358-3.740); TOTAL PROTEIN 7.3 GM/DL (6.4-8.2)
== END ==
LOC: M SFHCPLAZ 08:05
PROVIDERS: ATTEND Nurse Practitioner Adult Health
DX: E03.9 Hypothyroidism, unspecified (principal); I10 Essential (primary) hypertension

== ENCOUNTER → 2019-04-26 | Outpatient (CLI) | payer BC ==
[~2019-04-26] MED LIST changes: -OMEP20CA3 PO; +OMEP20CA4 PO
[2019-04-26 08:07] LABS: HEMATOCRIT 38.6 % (36.0-47.0); HEMOGLOBIN 12.5 g/dl (12.0-15.5); MEAN CORPUSCULAR HEMOGLOBIN 27.6 pg (27.0-33.0); MEAN CORPUSCULAR HGB CONC 32.4 g/dl (32.0-36.5); MEAN CORPUSCULAR VOLUME 85.2 fl (80.0-96.0); PLATELET COUNT, AUTOMATED 364 10^3/uL (150-450); RED BLOOD COUNT 4.53 10^6/uL (4.00-5.40); WHITE BLOOD COUNT 7.7 10^3/uL (4.0-10.0)
[2019-04-26 08:46] LABS: ALBUMIN 3.7 GM/DL (3.2-5.2); ALT/SGPT 44 U/L (12-78); BILIRUBIN,TOTAL 0.3 MG/DL (0.2-1.0); BLOOD UREA NITROGEN 22 MG/DL (7-18); CALCIUM LEVEL 9.4 MG/DL (8.5-10.1); CARBON DIOXIDE LEVEL 28 MEQ/L (21-32); CHLORIDE LEVEL 103 MEQ/L (98-107); CHOLESTEROL LEVEL 247 MG/DL (<200); CHOLESTEROL RISK RATIO 5.613 (<5); CREATININE FOR GFR 0.91 MG/DL (0.55-1.30); GLOMERULAR FILTRATION RATE > 60.0 (>58); GLUCOSE, FASTING 110 MG/DL (70-100); HDL CHOLESTEROL 44 MG/DL (>40); LDL CHOLESTEROL 146 MG/DL (<100); NON-HDL-C 203 MG/DL; POTASSIUM SERUM 4.3 MEQ/L (3.5-5.1); SODIUM LEVEL 139 MEQ/L (136-145); THYROID STIMULATING HORMONE 0.367 uIU/ML (0.358-3.740); TOTAL PROTEIN 7.2 GM/DL (6.4-8.2); TRIGLYCERIDES LEVEL 284 MG/DL (<150)
== END ==
LOC: M LAB 07:15
PROVIDERS: ATTEND Nurse Practitioner Adult Health
DX: D47.3 Essential (hemorrhagic) thrombocythemia (principal); I10 Essential (primary) hypertension; E78.2 Mixed hyperlipidemia

== ENCOUNTER → 2019-08-27 | Outpatient (CLI) | payer BC ==
[~2019-08-27] MED LIST changes: +OMEP-172 PO; -OMEP20CA4 PO
[2019-08-27 08:47] LABS: BLOOD UREA NITROGEN 22 MG/DL (7-18); CREATININE FOR GFR 1.02 MG/DL (0.55-1.30); GLOMERULAR FILTRATION RATE > 60.0 (>58)
== END ==
LOC: M LAB 07:18
PROVIDERS: ATTEND Orthopaedic Surgery Orthopaedic Surgery of the Spine
DX: M54.5 Low back pain (principal); M54.16 Radiculopathy, lumbar region

== ENCOUNTER → 2019-09-19 | Outpatient (CLI) | payer BC ==
[~2019-09-19] MED LIST changes: -OMEP-172 PO; +OMEP1CAP73 PO; +PROHANCE 279.3MG/ML 15ML VIAL (A9576) As Ordered ONE; +PROHANCE 279.3MG/ML 5ML VIAL (A9576) As Ordered ONE; +ZONI50CA11 PO; -ZONI50CA3 PO
--- NOTE | 2019-09-19 16:18 | REPVR ---
PROCEDURE INFORMATION: Exam: MR Lumbar Spine Without and With Contrast. Exam date and time: 09/19/2019 9:40 AM Age: 43 years old Clinical indication: Low back pain; Prior surgery; Surgery date: 6+ months; Surgery type: Micro discetomy; Additional info: Back pain, HX of back surgery TECHNIQUE: Imaging protocol: Multiplanar magnetic resonance images of the lumbar spine without and with intravenous contrast. Contrast material: PROHANCE; Contrast volume: 20 ml; Contrast route: IV; COMPARISON: CR Spine, Lumbosacral, partial 09/06/2019 7:19 AM FINDINGS: Vertebrae: There is 5 mm of grade 1 retrolisthesis L5 with respect to S1. Normal vertebral body alignment is otherwise preserved. Vertebral body heights are within normal limits. There is severe intervertebral disc space loss at L5/S1. Spinal cord: The conus medullaris terminates at L1/2 L1-L2: There is mild facet and ligamentous hypertrophy. The spinal canal and neural foramina are patent. L2-L3: There is mild facet and ligamentous hypertrophy. There is mild right neural foraminal narrowing. L3-L4: There is shallow disc bulging. There is bzmy-wg-zaaorjxq facet and ligamentous hypertrophy. There is mild right neural foraminal narrowing. L4-L5: There is diffuse disc bulging. There is moderate facet hypertrophy. There is mild bilateral neural foraminal narrowing. L5-S1: There are left hemilaminectomy changes. There is diffuse disc bulging/uncovering related to listhesis. There is gili-ky-yihgfphe facet hypertrophy. Fluid is noted within the facet joints. There is hxrq-ib-jujbrxvo right and tpupttiw-mv-yooxtg left neural foraminal narrowing. Soft tissues: There are postoperative changes within the paraspinal soft tissues. IMPRESSION: Degenerative disc disease and spondylosis. At L5/S1, changes contribute to mild to moderate right and moderate to severe left neural foraminal narrowing in the setting of a left hemilaminectomy. Electronically signed by: Lillian Pringle On 09/19/2019 16:10:21 PM
== END ==
LOC: M RAD 07:48
PROVIDERS: ATTEND Orthopaedic Surgery Orthopaedic Surgery of the Spine
DX: M54.9 Dorsalgia, unspecified (principal)
CPT/HCPCS: 72158; A9576

== ENCOUNTER → 2020-03-06 | Outpatient (REF) | payer BC ==
[~2020-03-06] MED LIST changes: -PROHANCE 279.3MG/ML 15ML VIAL (A9576) As Ordered ONE; -PROHANCE 279.3MG/ML 5ML VIAL (A9576) As Ordered ONE
== END ==
LOC: M SFHCPLAZ 10:33
PROVIDERS: ATTEND Nurse Practitioner Adult Health
DX: E03.9 Hypothyroidism, unspecified (principal)

== ENCOUNTER → 2020-08-10 | Outpatient (REF) | payer BC ==
[2020-08-10 11:29] LABS: ALBUMIN 3.6 GM/DL (3.2-5.2); ALT/SGPT 34 U/L (12-78); BILIRUBIN,TOTAL 0.5 MG/DL (0.2-1.0); BLOOD UREA NITROGEN 19 MG/DL (7-18); CALCIUM LEVEL 9.1 MG/DL (8.5-10.1); CARBON DIOXIDE LEVEL 30 MEQ/L (21-32); CHLORIDE LEVEL 100 MEQ/L (98-107); CHOLESTEROL LEVEL 226 MG/DL (<200); CHOLESTEROL RISK RATIO 5.512 (<5); CREATININE FOR GFR 0.93 MG/DL (0.55-1.30); GLOMERULAR FILTRATION RATE > 60.0 (>58); GLUCOSE, FASTING 118 MG/DL (70-100); HDL CHOLESTEROL 41 MG/DL (>40); LDL CHOLESTEROL 136 MG/DL (<100); NON-HDL-C 185 MG/DL; POTASSIUM SERUM 4.2 MEQ/L (3.5-5.1); SODIUM LEVEL 136 MEQ/L (136-145); TRIGLYCERIDES LEVEL 246 MG/DL (<150)
[2020-08-10 11:38] LABS: HEMOGLOBIN A1c 5.8 %
== END ==
LOC: M SFHCPLAZ 07:59
PROVIDERS: ATTEND Nurse Practitioner Adult Health
DX: Z00.00 Encounter for general adult medical examination without abnormal findings (principal); E78.2 Mixed hyperlipidemia; E03.9 Hypothyroidism, unspecified; Z13.1 Encounter for screening for diabetes mellitus

== ENCOUNTER → 2021-01-05 | Outpatient (CLI) | payer BC ==
[~2021-01-05] MED LIST changes: +HYDR-3490 PO; -HYDR25TAB PO
--- NOTE | 2021-01-06 02:42 | REPPI ---
INDICATION: RIGHT MEDIAL KNEE PAIN COMPARISON: None. TECHNIQUE: AP, lateral, bilateral oblique and sunrise views. FINDINGS: The osseous structures and joint spaces are intact and normal. There is no evidence for acute fracture or dislocation. No joint effusion is appreciated. Surrounding soft tissues are unremarkable. No subcutaneous emphysema or radiodense foreign body. IMPRESSION: Normal age-appropriate right knee examination. No acute fracture or dislocation. <Electronically signed by Mainor Ballard > 01/06/21 [id number]
== END ==
LOC: M PLAIMG 15:12
PROVIDERS: ATTEND Nurse Practitioner Adult Health
DX: M25.561 Pain in right knee (principal)

== ENCOUNTER → 2021-03-28 | Outpatient (CLI) | payer BC ==
[~2021-03-28] MED LIST changes: +METO1TAB7 PO
== END ==
LOC: M RAD 14:31
PROVIDERS: ATTEND Orthopaedic Surgery Adult Reconstructive Orthopaedic Surgery
DX: M23.206 Derangement of unspecified meniscus due to old tear or injury, right knee (principal)

== ENCOUNTER → 2021-05-03 | Outpatient (CLI) | payer BC ==
[2021-05-03 11:29] LABS: ALT/SGPT 28 U/L (12-78); BILIRUBIN,TOTAL 0.3 MG/DL (0.2-1.0); BLOOD UREA NITROGEN 17 MG/DL (7-18); CALCIUM LEVEL 8.8 MG/DL (8.5-10.1); CARBON DIOXIDE LEVEL 27 MEQ/L (21-32); CHLORIDE LEVEL 104 MEQ/L (98-107); CHOLESTEROL LEVEL 249 MG/DL (<200); CREATININE FOR GFR 0.79 MG/DL (0.55-1.30); GLOMERULAR FILTRATION RATE > 60.0 (>58); GLUCOSE, FASTING 90 MG/DL (70-100); HDL CHOLESTEROL 42 MG/DL (>40); NON-HDL-C 207 MG/DL; POTASSIUM SERUM 4.7 MEQ/L (3.5-5.1); SODIUM LEVEL 139 MEQ/L (136-145); TRIGLYCERIDES LEVEL 210 MG/DL (<150)
[2021-05-03 11:30] LABS: ALBUMIN 3.3 GM/DL (3.2-5.2); CHOLESTEROL RISK RATIO 5.928 (<5); LDL CHOLESTEROL 165 MG/DL (<100); TOTAL PROTEIN 6.6 GM/DL (6.4-8.2)
== END ==
LOC: M PLALAB 08:05
PROVIDERS: ATTEND Nurse Practitioner Adult Health
DX: E28.2 Polycystic ovarian syndrome (principal); I10 Essential (primary) hypertension; E78.2 Mixed hyperlipidemia; E03.9 Hypothyroidism, unspecified

== ENCOUNTER → 2021-05-13 | Outpatient (CLI) | payer BC | LOC: M LABSMTC 09:19 | PROVIDERS: ATTEND Anesthesiology | DX: Z01.812 Encounter for preprocedural laboratory examination (principal); Z20.822 Contact with and (suspected) exposure to COVID-19 ==

== ENCOUNTER → 2021-05-15 | Outpatient (CLI) | payer BC ==
--- NOTE | 2021-05-15 18:39 | ECGEPIP ---
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
== END ==
LOC: M EKG 09:43
PROVIDERS: ATTEND Anesthesiology
DX: Z01.818 Encounter for other preprocedural examination (principal)

== ENCOUNTER 2021-05-18 12:03 | Day surgery (SDC) | payer BC ==
[~2021-05-18] VITALS: Ht 170.2 cm; Wt 105.7 kg
[~2021-05-18 12:03] MED LIST changes: +ACETAMINOPHEN 500 MG TAB PO ONE; +CelecoXIB 400 MG CAP PO ONE; +GABAPENTIN 300 MG CAP PO ONE; +LIDOCAINE 1% MDV 20ML VIAL SQ PRN; +LR 1,000 ML IV ONE; +ONDANSETRON 4MG/2ML VIAL IV ONE
[2021-05-18] MEDS ORDERED: LIDOCAINE 2% 100MG/5ML SDV (FOR ANES.) As Ordered ONE (12:09)
[2021-05-18] MEDS ORDERED: propofoL 200 MG/20 ML VIAL As Ordered ONE (12:09)
[2021-05-18] MEDS ORDERED: MIDAZOLAM INJ 2MG/2ML VIAL (J2250 PER 1MG) As Ordered ONE (12:10)
[2021-05-18] MEDS ORDERED: fentaNYL 100 MCG/2 ML INJECTION (J3010) As Ordered ONE (12:10)
[2021-05-18] MEDS ORDERED: BUPIVACAINE/EPIN 0.5% 30 ML VIAL As Ordered ONE (14:14)
[2021-05-18] MEDS ORDERED: EPINEPHrine 1MG/ML INJ 30ML MD-VIAL As Ordered ONE (14:14)
[2021-05-18] MEDS ORDERED: dexameTHASONE 4 MG/ML 1ML VIAL (J1100 PER 1MG) As Ordered ONE (14:46)
--- NOTE | 2021-05-18 15:41 | ROOPDOC ---
[facility] Report Of Operation Report of Operation DATE OF PROCEDURE: 05/18/21 PREPROCEDURE DIAGNOSES: Right knee medial meniscal tear POSTPROCEDURE DIAGNOSES: Right knee medial meniscal tear with grade 2-3 changes to lateral aspect of medial femoral condyle and patella PROCEDURE: Right knee arthroscopy Right knee medial meniscectomy, partial Chondroplasty of patella and medial femoral condyle Plica ectomy SURGEON: Clarke Argueta MD PRESCRIPTION CLERK LENSES: Bridget Joyner PA-C ANESTHESIA: General ESTIMATED BLOOD LOSS: Less than 15 mL. COMPLICATIONS: No known complications. REMARKS: Tourniquet inflated for 30 minutes. PROCEDURE NOTE: The patient was seen in the preoperative area, Consent was reviewed or obtained and the appropriate extremity was marked. DESCRIPTION OF PROCEDURE: The patient was brought to the operating room and after a surgical pause, the anesthetic was induced. The patient was appropriately positioned supine on the operating room table. A tourniquet was applied to the appropriate thigh with appropriate padding. Side bolster was also applied to help with manipulation of the extremity during the procedure. The extremity was prepped with chlorhexidine. The patient was draped in the normal sterile fashion. After a surgical safety checklist was performed, and a timeout was performed, the tourniquet was inflated and the incision over the lateral portal site was carried out. The trocar was introduced using the blunt tip. The scope was introduced and the fluid was allowed to run until the joint was insufflated with the scope in the patellofemoral joint. A diagnostic arthroscopy was then carried out. A medial portal was established using needle localization technique. A superior lateral portal was also established using needle localization. Patellofemoral joint: Plica debrided with shaver Patella: Grade 2-3 changes with flaps debrided with shaver Medial gutter: Nothing Lateral gutter: Nothing Medial meniscus: Complex medial meniscal tear with body extruded into the joint space. Debrided with shaver and arthroscopic punches back to a stable border Medial femoral condyle: Lateral aspect of medial femoral condyle demonstrated grade 2-3 changes debrided with arthroscopic shaver Medial tibial condyle: Grade 1 ACL: Possible grade 1 laxity Lateral meniscus: Stable throughout Lateral femoral condyle: Grade 0 Lateral tibial plateau: Grade 1 Once the arthroscopic procedure was completed, the fluid was removed from the joint and the wounds were closed with 3. 0 Monocryl suture. Local anesthetic of 0.5% Marcaine with epi was instilled in the soft tissues and into the joint region. Mastisol was applied to the skin followed by Steri-Strips and Telfa and Tegaderm dressing. This was reinforced with an abdominal pad and a large Gómez wrap was placed up to the level of the thigh from the foot and ankle. The patient tolerated the procedure well with no known complications. The patient will be seen for follow-up within 2 weeks, as scheduled. Postoperative instruction booklet was provided. The patient will have prescriptions for oxycodone for pain, baby aspirin for DVT prophylaxis, and senna for constipati on. Tylenol and ibuprofen can be used as directed by bottle instructions. Prescriptions were sent to pharmacy, as requested. Thank you for referring this patient to my care, CLARKE ARGUETA MD May 18, 2021 15:41
[2021-05-18] MEDS ORDERED: fentaNYL 100 MCG/2 ML INJECTION (J3010) IV PRN (16:25)
[2021-05-18] MEDS ORDERED: ONDANSETRON 4MG/2ML VIAL IV PRN (16:25)
[2021-05-18] MEDS ORDERED: LR 1,000 ML IV SCH ×2 (16:25)
[2021-05-18] MEDS ORDERED: oxyCODONE 5MG TAB PO PRN (16:25)
[2021-05-18 16:59] VITALS: BP 154/75
== END 2021-05-18 17:02 | disposition home or self-care (01) ==
LOC: M SDC 12:03
PROVIDERS: ATTEND Orthopaedic Surgery Adult Reconstructive Orthopaedic Surgery
DX: M23.303 Other meniscus derangements, unspecified medial meniscus, right knee (principal); M25.561 Pain in right knee; I10 Essential (primary) hypertension; R00.2 Palpitations; E03.9 Hypothyroidism, unspecified; E78.5 Hyperlipidemia, unspecified; E28.2 Polycystic ovarian syndrome; Z79.84 Long term (current) use of oral hypoglycemic drugs; Z79.899 Other long term (current) drug therapy
CPT/HCPCS: 29881; 81025; J1100; J2250; J3010

== ENCOUNTER → 2021-06-24 | Outpatient (CLI) | payer BC ==
[~2021-06-24] MED LIST changes: -ACETAMINOPHEN 500 MG TAB PO ONE; -CelecoXIB 400 MG CAP PO ONE; -GABAPENTIN 300 MG CAP PO ONE; -LIDOCAINE 1% MDV 20ML VIAL SQ PRN; -LR 1,000 ML IV ONE; -ONDANSETRON 4MG/2ML VIAL IV ONE
== END ==
LOC: M LABSMTC 11:29
PROVIDERS: ATTEND Pediatrics
DX: Z20.822 Contact with and (suspected) exposure to COVID-19 (principal)
CPT/HCPCS: C9803; U0003

== ENCOUNTER → 2022-03-25 | Outpatient (CLI) | payer BC ==
[2022-03-25 13:10] LABS: ALBUMIN 3.7 GM/DL (3.2-5.2); ALT/SGPT 29 U/L (12-78); BILIRUBIN,TOTAL 0.5 MG/DL (0.2-1.0); BLOOD UREA NITROGEN 17 MG/DL (7-18); CALCIUM LEVEL 9.4 MG/DL (8.5-10.1); CARBON DIOXIDE LEVEL 28 MEQ/L (21-32); CHLORIDE LEVEL 99 MEQ/L (98-107); CHOLESTEROL LEVEL 273 MG/DL (<200); CHOLESTEROL RISK RATIO 5.687 (<5); CREATININE FOR GFR 0.87 MG/DL (0.55-1.30); GLOMERULAR FILTRATION RATE > 60.0 (>58); GLUCOSE, FASTING 91 MG/DL (70-100); HDL CHOLESTEROL 48 MG/DL (>40); LDL CHOLESTEROL 185 MG/DL (<100); NON-HDL-C 225 MG/DL; POTASSIUM SERUM 4.1 MEQ/L (3.5-5.1); SODIUM LEVEL 136 MEQ/L (136-145); TOTAL PROTEIN 7.9 GM/DL (6.4-8.2); TRIGLYCERIDES LEVEL 199 MG/DL (<150)
[2022-03-25 15:41] LABS: HEMOGLOBIN A1c 5.8 %
== END ==
LOC: M WUC 08:36
PROVIDERS: ATTEND Nurse Practitioner Adult Health
DX: E28.2 Polycystic ovarian syndrome (principal); I10 Essential (primary) hypertension; E03.9 Hypothyroidism, unspecified

== ENCOUNTER → 2022-05-04 | Outpatient (REF) | payer BC | LOC: M PLALAB 16:55 | PROVIDERS: ATTEND Obstetrics & Gynecology | DX: Z12.4 Encounter for screening for malignant neoplasm of cervix (principal) | CPT/HCPCS: 87624; G0123 ==

== ENCOUNTER → 2022-06-01 | Outpatient (CLI) | payer BC | LOC: M PLALAB 08:06 | PROVIDERS: ATTEND Nurse Practitioner Adult Health | DX: E03.9 Hypothyroidism, unspecified (principal) ==

== ENCOUNTER → 2022-10-10 | Outpatient (CLI) | payer BC ==
[2022-10-10 10:51] LABS: ALBUMIN 3.8 G/DL (3.2-5.2); ALKALINE PHOSPHATASE 67 U/L (46-116); ALT/SGPT 28 U/L (7.0-40); AST/SGOT 15 U/L (<34); BILIRUBIN,TOTAL 0.6 MG/DL (0.3-1.2); BLOOD UREA NITROGEN 18 MG/DL (9-23); CALCIUM LEVEL 9.7 MG/DL (8.5-10.1); CARBON DIOXIDE LEVEL 30 MMOL/L (20-31); CHLORIDE LEVEL 98 MMOL/L (98-107); CREATININE FOR GFR 0.81 MG/DL (0.55-1.30); GLOMERULAR FILTRATION RATE > 60.0 (>58); GLUCOSE, FASTING 94 MG/DL (60-100); POTASSIUM SERUM 4.5 MMOL/L (3.5-5.1); SODIUM LEVEL 136 MMOL/L (136-145); THYROID STIMULATING HORMONE 3.146 uIU/ML (0.55-4.78); TOTAL PROTEIN 7.3 G/DL (5.7-8.2)
[2022-10-10 11:10] LABS: HEMOGLOBIN A1c 5.9 % (4.0-6.0)
== END ==
LOC: M PLALAB 08:14
PROVIDERS: ATTEND Nurse Practitioner Adult Health
DX: E28.2 Polycystic ovarian syndrome (principal); I10 Essential (primary) hypertension; E03.9 Hypothyroidism, unspecified

== ENCOUNTER → 2023-04-12 | Outpatient (REF) | payer BC ==
[2023-04-12 11:22] LABS: ALBUMIN 3.8 G/DL (3.2-5.2); ALKALINE PHOSPHATASE 62 U/L (46-116); ALT/SGPT 23 U/L (7.0-40); AST/SGOT 10 U/L (<34); BILIRUBIN,TOTAL 0.4 MG/DL (0.3-1.2); BLOOD UREA NITROGEN 18 MG/DL (9-23); CALCIUM LEVEL 9.8 MG/DL (8.5-10.1); CARBON DIOXIDE LEVEL 29 MMOL/L (20-31); CHLORIDE LEVEL 98 MMOL/L (98-107); CREATININE FOR GFR 0.79 MG/DL (0.55-1.30); GLOMERULAR FILTRATION RATE > 60.0 (>58); GLUCOSE, FASTING 93 MG/DL (60-100); POTASSIUM SERUM 4.3 MMOL/L (3.5-5.1); SODIUM LEVEL 137 MMOL/L (136-145); TOTAL PROTEIN 7.4 G/DL (5.7-8.2)
[2023-04-12 11:23] LABS: FREE T4 1.25 NG/DL (0.89-1.76); THYROID STIMULATING HORMONE 3.218 uIU/ML (0.55-4.78)
== END ==
LOC: M PLALAB 10:01
PROVIDERS: ATTEND Nurse Practitioner Adult Health
DX: I10 Essential (primary) hypertension (principal); E03.9 Hypothyroidism, unspecified

== ENCOUNTER → 2023-10-25 | Outpatient (CLI) | payer BC | LOC: M RAD 06:44 | PROVIDERS: ATTEND Nurse Practitioner Adult Health | DX: R10.11 Right upper quadrant pain (principal) | CPT/HCPCS: 78227; A9537 ==

== ENCOUNTER → 2023-11-30 | Outpatient (CLI) | payer BC ==
[~2023-11-30] MED LIST changes: +ESCI5SOL3 PO; +LEVO112T2 PO; +OMEP40CA4 PO; +VALS40TA9 PO
[2023-11-30 13:37] LABS: HEMATOCRIT 41.7 % (36.0-47.0); HEMOGLOBIN 13.8 g/dl (12.0-15.5); MEAN CORPUSCULAR HEMOGLOBIN 29.1 pg (27.0-33.0); MEAN CORPUSCULAR HGB CONC 33.1 g/dl (32.0-36.5); MEAN CORPUSCULAR VOLUME 87.8 fl (80.0-96.0); PLATELET COUNT, AUTOMATED 411 10^3/uL (150-450); RED BLOOD COUNT 4.75 10^6/uL (4.00-5.40); WHITE BLOOD COUNT 9.6 10^3/uL (4.0-10.0)
[2023-11-30 13:39] LABS: BLOOD UREA NITROGEN 17 MG/DL (9-23); CALCIUM LEVEL 9.5 MG/DL (8.5-10.1); CARBON DIOXIDE LEVEL 32 MMOL/L (20-31); CHLORIDE LEVEL 99 MMOL/L (98-107); CREATININE FOR GFR 0.71 MG/DL (0.55-1.30); GLOMERULAR FILTRATION RATE > 60.0 (>58); GLUCOSE, FASTING 101 MG/DL (60-100); POTASSIUM SERUM 4.3 MMOL/L (3.5-5.1); SODIUM LEVEL 138 MMOL/L (136-145)
== END ==
LOC: M PLALAB 09:06
PROVIDERS: ATTEND Family Medicine
DX: Z01.810 Encounter for preprocedural cardiovascular examination (principal)

== ENCOUNTER 2023-12-07 07:08 | Day surgery (SDC) | payer BC ==
[~2023-12-07] VITALS: Ht 170.2 cm; Wt 106.1 kg
[2023-12-07] MEDS: INDOCYANINE GREEN 25MG VIAL (IC-GREEN) IV ONE (09:35)
[2023-12-07] MEDS: ceFAZolin SOD 2 GM in IV 1 EA IV ONE (09:42)
[2023-12-07] MEDS ORDERED: INDOCYANINE GREEN 25MG VIAL (IC-GREEN) As Ordered ONE (09:56)
[2023-12-07] MEDS ORDERED: propofoL 200 MG/20 ML VIAL As Ordered ONE (09:56)
[2023-12-07] MEDS ORDERED: ONDANSETRON 4MG 2ML VIAL As Ordered ONE (09:56)
[2023-12-07] MEDS ORDERED: SUGAMMADEX SODIUM 500 MG/5 ML VIAL (BRIDION) As Ordered ONE (09:56)
[2023-12-07] MEDS ORDERED: fentaNYL 100 MCG/2 ML INJECTION As Ordered ONE (09:56)
[2023-12-07] MEDS ORDERED: LIDOCAINE 2% 100MG/5ML SDV (FOR ANES.) As Ordered ONE (09:56)
[2023-12-07] MEDS ORDERED: KETOROLAC 60MG 2ML VIAL As Ordered ONE (09:56)
[2023-12-07] MEDS ORDERED: MIDAZOLAM INJ 2MG/2ML VIAL As Ordered ONE (09:56)
[2023-12-07] MEDS ORDERED: ROCURONIUM BROMIDE 50MG/5ML VIAL As Ordered ONE (09:56)
[2023-12-07] MEDS ORDERED: ACETAMINOPHEN 1000MG 100ML IV BAG As Ordered ONE (10:00)
[2023-12-07] MEDS: HEPARIN SOD (PORCINE) 5000UNITS/ML 1ML VIAL/SYRINGE SQ ONE (10:00)
[2023-12-07] MEDS ORDERED: HYDROmorphone HCL 2MG/ML 1ML VIAL As Ordered ONE (10:06)
[2023-12-07] MEDS ORDERED: fentaNYL 100 MCG/2 ML INJECTION IV PRN (11:15)
[2023-12-07] MEDS ORDERED: HYDROMORPHONE HCL 0.5 MG/ 0.5 ML SYRINGE IV PRN (11:15)
[2023-12-07] MEDS: LR 1,000 ML IV SCH (11:24)
[2023-12-07] MEDS: ONDANSETRON 4MG 2ML VIAL IV PRN (11:24)
[2023-12-07] MEDS: oxyCODONE 5MG TAB PO PRN (11:30)
[2023-12-07 12:50] VITALS: BP 124/83; TEMP 97.9; O2SAT 96
== END 2023-12-07 13:10 | disposition home or self-care (01) ==
LOC: M SDC 07:08
PROVIDERS: ATTEND Surgery
DX: K81.1 Chronic cholecystitis (principal); I10 Essential (primary) hypertension; E03.9 Hypothyroidism, unspecified; Z79.899 Other long term (current) drug therapy; K21.9 Gastro-esophageal reflux disease without esophagitis
CPT/HCPCS: 47562; 81025; 88304; J0131; J0665; J0690; J1100; J1170; J1885; J2250; J2405; J3010; Q9968; S2900

== ENCOUNTER → 2024-01-23 | Outpatient (CLI) | payer BC ==
[2024-01-23 10:36] LABS: HEMATOCRIT 41.6 % (36.0-47.0); HEMOGLOBIN 13.5 g/dl (12.0-15.5); MEAN CORPUSCULAR HEMOGLOBIN 28.3 pg (27.0-33.0); MEAN CORPUSCULAR HGB CONC 32.5 g/dl (32.0-36.5); MEAN CORPUSCULAR VOLUME 87.2 fl (80.0-96.0); PLATELET COUNT, AUTOMATED 376 10^3/uL (150-450); RED BLOOD COUNT 4.77 10^6/uL (4.00-5.40); WHITE BLOOD COUNT 10.1 10^3/uL (4.0-10.0)
[2024-01-23 10:53] LABS: FREE T4 1.19 NG/DL (0.89-1.76)
[2024-01-23 10:54] LABS: ALBUMIN 3.6 G/DL (3.2-5.2); ALKALINE PHOSPHATASE 69 U/L (46-116); ALT/SGPT 21 U/L (7.0-40); AST/SGOT 12 U/L (<34); BILIRUBIN,TOTAL 0.5 MG/DL (0.3-1.2); BLOOD UREA NITROGEN 14 MG/DL (9-23); CARBON DIOXIDE LEVEL 30 MMOL/L (20-31); CHLORIDE LEVEL 100 MMOL/L (98-107); CHOLESTEROL LEVEL 238 MG/DL (<200); CHOLESTEROL RISK RATIO 4.78 (<5); CREATININE FOR GFR 0.74 MG/DL (0.55-1.30); FERRITIN 43.5 NG/ML (7.3-270.7); GLOMERULAR FILTRATION RATE > 60.0 (>58); GLUCOSE, FASTING 100 MG/DL (60-100); HDL CHOLESTEROL 49.7 MG/DL (>40); LDL CHOLESTEROL 142.1 MG/DL (<100); NON-HDL-C 188.3 MG/DL; POTASSIUM SERUM 4.3 MMOL/L (3.5-5.1); SODIUM LEVEL 138 MMOL/L (136-145); TRIGLYCERIDES LEVEL 231 MG/DL (<150)
== END ==
LOC: M PLALAB 08:07
PROVIDERS: ATTEND Nurse Practitioner Adult Health
DX: D47.3 Essential (hemorrhagic) thrombocythemia (principal); I10 Essential (primary) hypertension; E03.9 Hypothyroidism, unspecified; E78.2 Mixed hyperlipidemia

== ENCOUNTER → 2024-06-10 | Outpatient (REF) | payer BC | LOC: M SFHCPLAZ 14:46 | PROVIDERS: ATTEND Nurse Practitioner Adult Health | DX: R11.0 Nausea (principal); M54.9 Dorsalgia, unspecified ==

== ENCOUNTER → 2024-08-28 | Outpatient (CLI) | payer BC ==
[2024-08-28 10:48] LABS: HEMATOCRIT 42.2 % (36.0-47.0); HEMOGLOBIN 13.9 g/dl (12.0-15.5); MEAN CORPUSCULAR HEMOGLOBIN 28.8 pg (27.0-33.0); MEAN CORPUSCULAR HGB CONC 32.9 g/dl (32.0-36.5); MEAN CORPUSCULAR VOLUME 87.4 fl (80.0-96.0); PLATELET COUNT, AUTOMATED 380 10^3/uL (150-450); RED BLOOD COUNT 4.83 10^6/uL (4.00-5.40); WHITE BLOOD COUNT 7.7 10^3/uL (4.0-10.0)
[2024-08-28 11:13] LABS: ALKALINE PHOSPHATASE 71 U/L (35-104); ALT/SGPT 23 U/L (7.0-40); AST/SGOT 16 U/L (<34); BILIRUBIN,TOTAL 0.5 MG/DL (0.3-1.2); BLOOD UREA NITROGEN 18 MG/DL (9-23); CALCIUM LEVEL 10.2 MG/DL (8.5-10.1); CARBON DIOXIDE LEVEL 30 MMOL/L (20-31); CHLORIDE LEVEL 104 MMOL/L (98-107); CHOLESTEROL LEVEL 264 MG/DL (<200); CHOLESTEROL RISK RATIO 5.42 (<5); CREATININE FOR GFR 0.76 MG/DL (0.55-1.30); GLOMERULAR FILTRATION RATE > 60.0 (>58); GLUCOSE, FASTING 101 MG/DL (60-100); HDL CHOLESTEROL 48.7 MG/DL (>40); LDL CHOLESTEROL 170.9 MG/DL (<100); MAGNESIUM LEVEL 1.7 MG/DL (1.8-2.4); NON-HDL-C 215.3 MG/DL; POTASSIUM SERUM 4.7 MMOL/L (3.5-5.1); SODIUM LEVEL 140 MMOL/L (136-145); TOTAL PROTEIN 7.1 G/DL (5.7-8.2); TRIGLYCERIDES LEVEL 222 MG/DL (<150)
[2024-08-28 11:14] LABS: THYROID STIMULATING HORMONE 1.454 uIU/ML (0.55-4.78)
[2024-08-28 11:15] LABS: FERRITIN 44.8 NG/ML (7.3-270.7); FREE T4 1.34 NG/DL (0.89-1.76)
[2024-08-28 11:18] LABS: HEMOGLOBIN A1c 5.7 % (4.0-6.0)
== END ==
LOC: M PLALAB 08:13
PROVIDERS: ATTEND Nurse Practitioner Adult Health
DX: D47.3 Essential (hemorrhagic) thrombocythemia (principal); E03.9 Hypothyroidism, unspecified; E28.2 Polycystic ovarian syndrome; E78.2 Mixed hyperlipidemia; I10 Essential (primary) hypertension

== ENCOUNTER → 2025-03-10 | Outpatient (CLI) | payer BC ==
[2025-03-10 11:00] LABS: PLATELET COUNT, AUTOMATED 407 10^3/uL (150-450)
[2025-03-10 11:15] LABS: ESTIMATED AVERAGE GLUCOSE 120.0 MG/DL (60-110)
[2025-03-10 11:25] LABS: FREE T4 1.28 NG/DL (0.89-1.76)
[2025-03-10 11:27] LABS: ALT/SGPT 19.0 U/L (7.0-40); AST/SGOT 18.0 U/L (<34); CALCIUM LEVEL 9.1 MG/DL (8.5-10.1); CARBON DIOXIDE LEVEL 29.0 MMOL/L (20-31); CHLORIDE LEVEL 99.0 MMOL/L (98-107); CHOLESTEROL LEVEL 234.0 MG/DL (<200); CHOLESTEROL RISK RATIO 5.17 (<5); CREATININE FOR GFR 0.84 MG/DL (0.55-1.30); GLOMERULAR FILTRATION RATE 86.2 (>58); LDL CHOLESTEROL 150.2 MG/DL (<100); MAGNESIUM LEVEL 1.5 MG/DL (1.8-2.4); NON-HDL-C 188.8 MG/DL; POTASSIUM SERUM 3.8 MMOL/L (3.5-5.1); SODIUM LEVEL 141.0 MMOL/L (136-145); TRIGLYCERIDES LEVEL 193.0 MG/DL (<150)
== END ==
LOC: M PLALAB 08:46
PROVIDERS: ATTEND Nurse Practitioner Adult Health
DX: D47.3 Essential (hemorrhagic) thrombocythemia (principal); I10 Essential (primary) hypertension; E03.9 Hypothyroidism, unspecified

== ENCOUNTER → 2025-07-28 | Outpatient (REF) | payer BC ==
[~2025-07-28] MED LIST changes: -IBUP-1022 PO; +IBUP600T42 PO
== END ==
LOC: M PLALAB 11:58
PROVIDERS: ATTEND Obstetrics & Gynecology
DX: Z12.4 Encounter for screening for malignant neoplasm of cervix (principal); Z53.9 Procedure and treatment not carried out, unspecified reason

== ENCOUNTER → 2025-07-29 | Outpatient (REF) | payer BC ==
[2025-07-31 13:52] LABS: HPV APTIMA Not Detected (Not Detected)
== END ==
LOC: M SFHCWAGY 13:05
PROVIDERS: ATTEND Obstetrics & Gynecology
DX: Z12.4 Encounter for screening for malignant neoplasm of cervix (principal); A59.01 Trichomonal vulvovaginitis
CPT/HCPCS: 87624; G0123